=== PATIENT | male | born 1955 | race Caucasian/White ===

== ENCOUNTER 2017-02-23 10:30 | Inpatient (IN) ==
[2017-02-23] MEDS ORDERED: ENOXAPARIN 150 MG/ML INJECTION SQ ONE (10:49)
[2017-02-23] MEDS ORDERED: METHYLPREDNISOLONE SOD SUCC 125mg/2ml INJECTION IVP ONE (10:49)
--- NOTE | 2017-02-23 10:54 | Emergency Department Report ---
SOB HPI - General Chief Complaint: Shortness of Breath/Dyspnea Stated Complaint: soa Time Seen by Provider: 02/23/17 10:35 Source: patient, family Mode of arrival: ambulatory Limitations: no limitations - History of Present Illness 61yo man presents to the ER for evaluation of dyspnea. Pts sx started abruptly last night; pt has had associated diaphoresis, orthopnea, and anxiety. No known h/o lung dz or COPD. Has no h/o cardiac arrhythmia; takes no blood thinners. Complaint: shortness of breath Onset (ago): hour(s) (12) Severity: severe Consistency/Duration: constant Relieving factors: upright position Exacerbating factors: lying flat, exertion, movement Associated symptoms: orthopnea, palpitations, diaphoresis, nausea/vomiting Treatment prior to arrival: none - Related Data Home Medications Medication Instructions Recorded Confirmed Amlodipine Besylate 10 mg PO HS #0 04/30/08 02/23/17 Meloxicam 7.5 mg PO DAILY #0 04/30/08 02/23/17 Fenofibrate [Tricor] 145 mg PO DAILY #0 08/18/10 02/23/17 Metoprolol Succinate 100 mg PO DAILY #0 08/18/10 02/23/17 Losartan/Hydrochlorothiazide 1 each PO DAILY #0 12/26/12 02/23/17 [Losartan-Hctz 100-25 mg Tab] Sertraline HCl 100 mg PO DAILY #0 tab 02/03/15 02/23/17 [place] 10 mg-acetaminophen 325 mg 1 tab PO Q8H PRN 01/07/17 02/23/17 tablet Saw [place] Fruit [Saw [place]phalia] 450 mg PO DAILY 02/23/17 02/23/17 Allergies Allergy/AdvReac Type Severity Reaction Status Date / Time No Known Allergies Allergy Mild Verified 02/23/17 10:50 Review of Systems All systems: reviewed and negative except as stated Constitutional: Reports: other (Not feeling well.) Cardiovascular: Reports: as per HPI, dyspnea on exertion, orthopnea Respiratory: Reports: as per HPI, dyspnea [facility] Medical History (Last Reviewed 01/08/17 @ 09:02 by Efraín Rivas MD) COPD (chronic obstructive pulmonary disease) (Chronic Medical) Depression (Chronic Medical) HTN (hypertension) (Chronic Medical) High cholesterol (Chronic Medical) Osteoarthritis (Chronic Medical) Surgical History: Wade FAITH, hernia repair x3 Family History: Family History (Last Reviewed 01/08/17 @ 09:02 by Efraín Rivas MD) Father Diabetes HTN (hypertension) Mother Dementia Stroke - Social History Smoking status: Former smoker Physical Exam - Limitations Limitations: no limitations - General General appearance: alert, in no apparent distress, obese - Normal Exams: Head:: Normocephalic without trauma Eyes:: Pupils are PERRLA w/ EOMI, No scleral icterus, irritation, or foreign bodies noted ENMT:: No facial trauma, nasal exudates, pharyngeal erythema, or exudates are noted Neck:: Full range of motion, without adenopathy, JVD, bruits or thyromegaly Lymphatic:: No lymphadenopathy Musculoskeletal:: No tenderness, or deformity noted Integumentary:: No rashes, hives, or bruising noted Neurological:: Patient is alert, and oriented Psychiatric:: Patient exhibits, appropriate attention - Chest Chest inspection: Present: normal inspection, symmetric chest wall rise. Absent : tenderness, rash - Respiratory Respiratory exam: Absent: normal lung sounds bilaterally (Decreased air movement throughout), respiratory distress, wheezes, prolonged expiratory phase - Cardiovascular Cardiovascular exam: Present: tachycardia, irregular rhythm, normal heart sounds , +S1, +S2. Absent: regular rate, normal rhythm, systolic murmur, diastolic murmur, +S3, +S4 - Abdominal Exam Abdominal exam: Present: soft, normal bowel sounds. Absent: distention, tenderness, guarding, rebound, rigidity, psoas sign, obturator sign, heel tap sign, Keyes's sign, Rovsing's sign, tenderness at McBurney's Point, hernia Course - Consultations Consultation #1: Dr. Diaz ([facility]): Plan for admission to ensure rate control, anticoag, and likely cath on Saturday. Time: 12:48 Vital Signs Temperature 97.9 F 02/23/17 10:32 Pulse Rate 95 02/23/17 10:32 Respiratory Rate 22 02/23/17 10:32 Blood Pressure 152/101 H 02/23/17 10:32 Pulse Oximetry 95 02/23/17 10:32 Temperature 97.9 F 02/23/17 10:32 Pulse Rate 95 02/23/17 10:32 Respiratory Rate 12 02/23/17 11:35 Blood Pressure 152/101 H 02/23/17 10:32 Pulse Oximetry 95 02/23/17 11:35 Shortness of Breath/Dyspnea - [facility] Narrative Medical decision making narrative: Pt with new-onset CHF, new-onset A-fib, and associated dyspnea. 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 - Differential Diagnosis Likely: acute exacerbation of chronic obstructive airways disease, congestive heart failure, community acquired pneumonia, pulmonary embolism - Medical Records Attestation: I reviewed the patient's medical records. - Lab Data Attestation: I reviewed the patient's lab results. Result diagrams: 02/23/17 11:09 02/23/17 11:09 Lab Results 02/23/17 02/23/17 02/23/17 Range/Units 11:09 11:09 11:09 WBC 9.5 (4.5-11.0) T/MM3 RBC 5.37 (4.50-5.90) M/MM3 Hgb 14.6 (13.5-17.5) GM/DL Hct 45.2 (41-53) % MCV 84.2 (80-100) UM3 MCH 27.2 (26-34) UUG MCHC 32.3 (31-37) GM/DL RDW Std Deviation 46.7 (36.9-50.2) FL Plt Count 257 (130-400) T/MM3 MPV 10.1 (9.4-12.4) UM3 Immature Gran % (Auto) 0.4 (0.0-0.5) % Neut % (Auto) 71.4 H (33-66) % Lymph % (Auto) 18.4 L (23-45) % [place] % (Auto) 8.3 (0-9.0) % Eos % (Auto) 1.1 (0-4) % Baso % (Auto) 0.4 (0-2) % Neut # 6.8 (1.8-7.7) T/MM3 Lymph # 1.7 (1-4.8) T/MM3 [place] # 0.8 (0-0.8) T/MM3 Eos # 0.1 (0-0.5) T/MM3 Baso # 0.0 (0-0.2) T/MM3 Abs Immat Gran (auto) 0.04 H (0.00-0.03) T/MM3 D-Dimer < 150 (0-230) NG/ML Turbidity < 20 (0-20) Sodium 145 H (134-144) MEQ/L Potassium 3.6 (3.6-5) MEQ/L Chloride 103 (98-107) MEQ/L Carbon Dioxide 28 (22-30) MEQ/L Anion Gap 14 (5-15) MEQ/L BUN 20.0 (9-20) MG/DL Creatinine 0.7 L (0.8-1.5) MG/DL GFR Calculation 114 BUN/Creatinine Ratio 29 H (6-26) RATIO Glucose 121 H (75-110) MG/DL Calculated Osmolality 283 H (261-280) MOSM/KG Calcium 10.0 (8.4-10.2) MG/DL Total Bilirubin 0.60 (0.20-1.30) MG/DL Icterus Index < 2 (0-7) AST 38 (17-59) U/L ALT 51 (21-72) U/L Alkaline Phosphatase 56 (38-126) U/L Troponin I 0.018 (0-0.12) ng/ml B-Natriuretic Peptide 1940 H (0-175) pg/mL Total Protein 7.5 (6.3-8.2) G/DL Albumin 4.7 (3.5-5.0) G/DL Globulin 2.8 (2.4-3.6) G/DL Albumin/Globulin Ratio 1.7 (1.1-2.2) RATIO Plasma Lactate (0.6-2.2) MMOL/L Specimen Hemolysis < 15 (0-25) Ur Collection Type Urine Color (YELLOW) Urine Clarity Urine pH (5.0-8.0) Ur Specific [place] (1.015-1.025) Urine Protein (NEGATIVE) Urine Glucose (UA) (NEGATIVE) Urine Ketones (NEGATIVE) Urine Occult Blood (NEGATIVE) Urine Nitrate (NEGATIVE) Urine Bilirubin (NEGATIVE) Urine Urobilinogen (NORMAL) EU/DL Ur Leukocyte Esterase (NEGATIVE) Urinalysis Comment 02/23/17 02/23/17 Range/Units 11:15 12:01 WBC (4.5-11.0) T/MM3 RBC (4.50-5.90) M/MM3 Hgb (13.5-17.5) GM/DL Hct (41-53) % MCV (80-100) UM3 MCH (26-34) UUG MCHC (31-37) GM/DL RDW Std Deviation (36.9-50.2) FL Plt Count (130-400) T/MM3 MPV (9.4-12.4) UM3 Immature Gran % (Auto) (0.0-0.5) % Neut % (Auto) (33-66) % Lymph % (Auto) (23-45) % [place] % (Auto) (0-9.0) % Eos % (Auto) (0-4) % Baso % (Auto) (0-2) % Neut # (1.8-7.7) T/MM3 Lymph # (1-4.8) T/MM3 [place] # (0-0.8) T/MM3 Eos # (0-0.5) T/MM3 Baso # (0-0.2) T/MM3 Abs Immat Gran (auto) (0.00-0.03) T/MM3 D-Dimer (0-230) NG/ML Turbidity (0-20) Sodium (134-144) MEQ/L Potassium (3.6-5) MEQ/L Chloride (98-107) MEQ/L Carbon Dioxide (22-30) MEQ/L Anion Gap (5-15) MEQ/L BUN (9-20) MG/DL Creatinine (0.8-1.5) MG/DL GFR Calculation BUN/Creatinine Ratio (6-26) RATIO Glucose (75-110) MG/DL Calculated Osmolality (261-280) MOSM/KG Calcium (8.4-10.2) MG/DL Total Bilirubin (0.20-1.30) MG/DL Icterus Index (0-7) AST (17-59) U/L ALT (21-72) U/L Alkaline Phosphatase (38-126) U/L Troponin I (0-0.12) ng/ml B-Natriuretic Peptide (0-175) pg/mL Total Protein (6.3-8.2) G/DL Albumin (3.5-5.0) G/DL Globulin (2.4-3.6) G/DL Albumin/Globulin Ratio (1.1-2.2) RATIO Plasma Lactate 1.9 (0.6-2.2) MMOL/L Specimen Hemolysis (0-25) Ur Collection Type Urine, clean catch Urine Color Yellow (YELLOW) Urine Clarity Clear Urine pH 6.5 (5.0-8.0) Ur Specific [place] 1.015 (1.015-1.025) Urine Protein Trace A (NEGATIVE) Urine Glucose (UA) Negative (NEGATIVE) Urine Ketones Negative (NEGATIVE) Urine Occult Blood Trace-intact (NEGATIVE) Urine Nitrate Negative (NEGATIVE) Urine Bilirubin Negative (NEGATIVE) Urine Urobilinogen 0.2 (NORMAL) EU/DL Ur Leukocyte Esterase Negative (NEGATIVE) Urinalysis Comment Microscopic not ind. - Radiology Data Attestation: I reviewed the patient's radiology results. CXR: BLL haziness; sharp costophrenic angles. Concern for atelectasis vs viral illness. - EKG Data EKG #1 EKG attestation: Yes: I reviewed and interpreted this EKG. EKG shows normal: intervals, QRS complexes, ST-T waves Rate: tachycardia Rhythm: A.Fib [place]/QRS: right axis deviation Disposition Clinical Impression: CHF (congestive heart failure) Qualifiers: Congestive heart failure type: unspecified congestive heart failure type Congestive heart failure chronicity: acute Qualified Code(s): I50.9 - Heart failure, unspecified A-fib Qualifiers: Atrial fibrillation type: unspecified Qualified Code(s): I48.91 - Unspecified atrial fibrillation Prescriptions: No Action Fenofibrate [Tricor] 145 mg PO DAILY #0 Metoprolol Succinate 100 mg PO DAILY #0 Meloxicam 7.5 mg PO DAILY #0 Amlodipine Besylate 10 mg PO HS #0 Losartan/Hydrochlorothiazide [Losartan-Hctz 100-25 mg Tab] 1 each PO DAILY #0 Sertraline HCl 100 mg PO DAILY #0 tab Saw [place] Fruit [Saw [place]] 450 mg PO DAILY [place] 10 mg-acetaminophen 325 mg tablet 1 tab PO Q8H PRN PRN Reason: Pain Referrals: Diego Miller MD [Family Provider] - Time of Disposition: 12:58 - Seen By: physician
[2017-02-23] MEDS: ALBUTEROL 2.5mg/3ml (0.083%) NEB IH SCH ×3 (10:58→11:35)
--- OUTSIDE RECORDS SUMMARY | 2017-02-23 11:03 | External Medical Summary | Referral Summary ---
:1955 Author Organization [facility], [place] [place] [address] Care Team Providers Name Role Phone Diego Miller Primary Care Physician Encounter VC Date(s): 11/22/14 - 11/22/14 [facility] [address] [place] [phone] [place] Discharge Diagnosis: LATERAL EPICONDYLITIS Discharge Diagnosis: Medial epicondylitis Discharge Disposition: 01-Home or Self Care Attending Physician: Diego Miller MD Admitting Physician: Diego Miller MD Vital Signs Most recent to oldest [Reference Range]: 1 Temperature Tympanic [36.6-38.1 degC] 36.0 degC *LOW* (11/22/14 11:18 AM) Peripheral Pulse Rate [60-100 bpm] 60 bpm (11/22/14 11:18 AM) Respiratory Rate [14-20 br/min] 16 br/min (11/22/14 11:18 AM) Blood Pressure [90-140/60-90 mmHg] 126/80 mmHg (11/22/14 11:18 AM) Problem List Condition Effective Dates Status Health Status Informant Allergy(Confirmed) Active Benign essential hypertension Active (disorder)(Confirmed) Bronchitis(Confirmed) Active Chicken pox(Confirmed) Active Left wrist cyst(Confirmed) Active Depression(Confirmed) Active Drug abuse(Confirmed) Active Ear infection(Confirmed) Active Foot ulcer Left(Confirmed) Active Gout (disorder)(Confirmed) Active Hep C(Confirmed) Active Hypertension(Confirmed) Active Lung nodules(Confirmed)1 Active Hyperlipidemia(Confirmed) Active Morbid obesity(Confirmed) Active patient Osteoarthritis(Confirmed) Active Overactive bladder(Confirmed) Active Pneumonia(Confirmed) Active Pure hypercholesterolemia Active (disorder)(Confirmed) Ulcer(Confirmed) Active 1Ct scan 12-. Plan khai in 6 months Allergies, Adverse Reactions, Alerts No Known Medication Allergies Medications amLODIPine 10 mg oral tablet See Instructions, TAKE ONE TABLET BY MOUTH ONCE DAILY, # 30 tabs, 4 Refill(s), eRx: [facility] 2428, TAKE ONE TABLET BY MOUTH ONCE DAILY Start Date: 01/25/15 Status: Orderedfenofibrate 145 mg oral tablet See Instructions, TAKE ONE TABLET BY MOUTH ONCE DAILY, # 30 tabs, 5 Refill(s), eRx: [facility] 2428, TAKE ONE TABLET BY MOUTH ONCE DAILY Start Date: 01/11/15 Status: Orderedlosartan-hydrochlorothiazide 100 mg-25 mg oral tablet See Instructions, TAKE ONE TABLET BY MOUTH ONCE DAILY, # 30 tabs, 2 Refill(s), eRx: [facility] 2428, TAKE ONE TABLET BY MOUTH ONCE DAILY Start Date: 04/25/15 Status: Orderedmeloxicam 7.5 mg oral tablet See Instructions, TAKE ONE TABLET BY MOUTH TWICE DAILY, # 60 tabs, 3 Refill(s), eRx: [facility] 2428, TAKE ONE TABLET BY MOUTH TWICE DAILY Start Date: 05/11/15 Status: OrderedMetoprolol Tartrate 100 mg oral tablet See Instructions, TAKE ONE TABLET BY MOUTH ONCE DAILY, # 30 tabs, 5 Refill(s), eRx: [facility] 2428, TAKE ONE TABLET BY MOUTH ONCE DAILY Start Date: 01/11/15 Status: OrderedNorco 10 mg-325 mg oral tablet 1-2 tabs, Oral, q6hr, as needed for pain, 2 weeks, # 60 tabs, 0 Refill(s) Start Date: 05/27/15 Status: OrderedpredniSONE 10 mg oral tablet See Instructions, Take 5 tabs for 2 days, then 4 for 2 days, then 3 for 2 days then 2 for 2 days, then 1 for 2 days, # 30 Each, 0 Refill(s), Pharmacy: [facility] 2428, Take 5 tabs for 2 days, then 4 for 2 days, then 3 for 2 days then 2 for 2 da... Start Date: 03/04/15 Status: Orderedsertraline 100 mg oral tablet See Instructions, TAKE ONE TABLET BY MOUTH EVERY DAY, # 30 tabs, 4 Refill(s), eRx: [facility], TAKE ONE TABLET BY MOUTH EVERY DAY Start Date: 01/25/15 Status: Ordered Results No data available for this section Immunizations Vaccine Date Refusal Reason tetanus/diphth/pertuss (Tdap) adult/adol 03/19/14 influenza virus vaccine, inactivated 03/14/15 influenza virus vaccine, inactivated 03/07/15 influenza virus vaccine, inactivated 03/12/14 influenza virus vaccine, inactivated 03/12/14 Procedures Procedure Date Related Diagnosis Body Site BRVO1 04/19/15 Colonoscopy2 02/03/15 Arthrocentesis, aspiration and/or injection, 11/22/14 intermediate joint or bursa (eg, temporomandibular, acromioclavicular, wrist, elbow or ankle, olecranon bursa); without ultrasound guidance Hip replacement-Right3 12/29/12 Hip replacement-Left 08/21/10 Cyst left wrist Hernia repair X3 Tonsillectomy Ulcer left foot 1Dr. Mariluz Jay with [facility] [id number] polyp, sister positive for colon cancer, repeat in 5 [id number] Social History Social History Type Response Smoking Status Former smoker Assessment and Plan Extracted from: Title: Ambulatory Patient Education Author: Diego Miller MD Date: Family Medicine Medial Epicondylitis (Golfer's Elbow) with Rehab Medial epicondylitis involves inflammation and pain around the inner (medial ) portion of the elbow. This pain is caused by inflammation of the tendons in the forearm that flex (bring down ) the wrist. Medial epicondylitis is also called golfer's elbow, because it is common among golfers. However, it may occur in any individual who flexes the wrist regularly. If medial epicondylitis is left untreated, it may become a chronic problem. SYMPTOMS Pain, tenderness, or inflammation over the inner (medial ) side of the elbow. Pain or weakness with gripping activities. Pain that increases with wrist twisting motions (using a screwdriver, playing golf, bowling). CAUSES Medial epicondylitis is caused by inflammation of the tendons that flex the wrist. Causes of injury may include: Chronic, repetitive stress and strain to the tendons that run from the wrist and forearm to the elbow. Sudden strain on the forearm, including wrist snap when serving balls with racquet sports, or throwing a baseball. RISK INCREASES WITH: Sports or occupations that require repetitive and/or strenuous forearm and wrist movements (pitching a baseball, golfing, carpentry). Poor wrist and forearm strength and flexibility. Failure to warm up properly before activity. Resuming activity before healing, rehabilitation, and conditioning are complete. PREVENTION Warm up and stretch properly before activity. Maintain physical fitness: Strength, flexibility, and endurance. Cardiovascular fitness. Wear and use properly fitted equipment. Learn and use proper technique and have a middle school football coach correct improper technique. Wear a tennis elbow (counterforce ) brace. PROGNOSIS The course of this condition depends on the degree of the injury. If treated properly, acute cases (symptoms lasting less than 4 weeks) are often resolved in 2 to 6 weeks. Chronic (longer lasting cases) often resolve in 3 to 6 months, but may require physical therapy. RELATED COMPLICATIONS Frequently recurring symptoms, resulting in a chronic problem. Properly treating the problem the first time decreases frequency of recurrence. Chronic inflammation, scarring, and partial tendon tear, requiring surgery. Delayed healing or resolution of symptoms. TREATMENT Treatment first involves the use of ice and medicine, to reduce pain and inflammation. Strengthening and stretching exercises may reduce discomfort, if performed regularly. These exercises may be perfor med at home, if the condition is an acute injury. Chronic cases may require a referral to a physical therapist for evaluation and treatment. Your caregiver may advise a corticosteroid injection to help reduce inflammation. Rarely, surgery is needed. MEDICATION If pain medicine is needed, nonsteroidal anti-inflammatory medicines ( aspirin and ibuprofen), or other minor pain relievers (acetaminophen), are often advised. Do not take pain medicine for 7 days before surgery. Prescription pain relievers may be given, if your caregiver thinks they are needed. Use only as directed and only as much as you need. Corticosteroid injections may be recommended. These injections should be reserved only for the most severe cases, because they can only be given a certain number of times. HEAT AND COLD Cold treatment (icing ) should be applied for 10 to 15 minutes every 2 to 3 hours for inflammation and pain, and immediately after activity that aggravates your symptoms. Use ice packs or an ice massage. Heat treatment may be used before performing stretching and strengthening activities prescribed by your caregiver, physical therapist, or market development trainer. Use a heat pack or a warm water soak. SEEK MEDICAL CARE IF: Symptoms get worse or do not improve in 2 weeks, despite treatment. EXERCISES RANGE OF MOTION (ROM) AND STRETCHING EXERCISES - Epicondylitis, Medial (Golfer' s Elbow) These exercises may help you when beginning to rehabilitate your injury. Your symptoms may go away with or without further involvement from your physician, physical therapist or market development trainer. While completing these exercises, remember: Restoring tissue flexibility helps normal motion to return to the joints. This allows healthier, less painful movement and activity. An effective stretch should be held for at least 30 seconds. A stretch should never be painful. You should only feel a gentle lengthening or release in the stretched tissue. RANGE OF MOTION Wrist Flexion, Active-Assisted Extend your right / left elbow with your fingers pointing down.* Gently pull the back of your hand towards you, until you feel a gentle stretch on the top of your forearm. Hold this position for seconds. Repeat times. Complete this exercise times per day. *If directed by your physician, physical therapist or market development trainer, complete this stretch with your elbow bent, rather than extended. RANGE OF MOTION Wrist Extension, Active-Assisted Extend your right / left elbow and turn your palm upwards.* Gently pull your palm and fingertips back, so your wrist extends and your fingers point more toward the ground. You should feel a gentle stretch on the inside of your forearm. Hold this position for seconds. Repeat times. Complete this exercise times per day. *If directed by your physician, physical therapist or market development trainer, complete this stretch with your elbow bent, rather than extended. STRETCH Wrist Extension Place your right / left fingertips on a tabletop leaving your elbow slightly bent. Your fingers should point backwards. Gently press your fingers and palm down onto the table, by straightening your elbow. You should feel a stretch on the inside of your forearm. Hold this position for seconds. Repeat times. Complete this stretch times per day. STRENGTHENING EXERCISES - Epicondylitis, Medial (Golfer's Elbow) These exercises may help you when beginning to rehabilitate your injury. They may resolve your symptoms with or without further involvement from your physician, physical therapist or market development trainer. While completing these exercises, remember: Muscles can gain both the endurance and the strength needed for everyday activities through controlled exercises. Complete these exercises as instructed by your physician, physical therapist or market development trainer. Increase the resistance and repetitions only as guided. You may experience muscle soreness or fatigue, but the pain or discomfort you are trying to eliminate should never worsen during these exercises. If this pain does get worse, stop and make sure you are following the directions exactly. If the pain is still present after adjustments, discontinue the exercise until you can discuss the trouble with your caregiver. STRENGTH Wrist Flexors Sit with your right / left forearm palm-up, and fully supported on a table or countertop. Your elbow should be resting below the height of your shoulder. Allow your wrist to extend over the edge of the surface. Loosely holding a weight, or a piece of rubber exercise band or tubing, slowly curl your hand up toward your forearm. Hold this position for seconds. Slowly lower the wrist back to the starting position in a controlled manner. Repeat times. Complete this exercise times per day. STRENGTH Wrist Extensors Sit with your right / left forearm palm-down and fully supported. Your elbow should be resting below the height of your shoulder. Allow your wrist to extend over the edge of the surface. Loosely holding a weight, or a piece of rubber exercise band or tubing, slowly curl your hand up toward your forearm. Hold this position for seconds. Slowly lower the wrist back to the starting position in a controlled manner. Repeat times. Complete this exercise times per day. STRENGTH - Ulnar Deviators Stand with a weight in your right / left hand, or sit while holding a rubber exercise band or tubing, with your healthy arm supported on a table or countertop. Move your wrist so that your pinkie travels toward your forearm and your thumb moves away from your forearm. Hold this position for seconds and then slowly lower the wrist back to the starting position. Repeat times. Complete this exercise times per day STRENGTH - Early Childhood Director Grasp a tennis ball, a dense sponge, or a large, rolled sock in your hand. Squeeze as hard as you can, without increasing any pain. Hold this position for seconds. Release your sheet turner slowly. Repeat times. Complete this exercise times per day. STRENGTH Forearm Supinators Sit with your right / left forearm supported on a table, keeping your elbow below shoulder height. Rest your hand over the edge, palm down. Gently sheet turner a hammer or a soup ladle. Without moving your elbow, slowly turn your palm and hand upward to a "thumbs-up" position. Hold this position for seconds. Slowly return to the starting position. Repeat times. Complete this exercise times per day. STRENGTH Forearm Pronators Sit with your right / left forearm supported on a table, keeping your elbow below shoulder height. Rest your hand over the edge, palm up. Gently sheet turner a hammer or a soup ladle. Without moving your elbow, slowly turn your palm and hand upward to a "thumbs-up" position. Hold this position for seconds. Slowly return to the starting position. Repeat times. Complete this exercise times per day. Document Released: 06/03/2006 Document Revised: 08/25/2012 Document Reviewed: 09/15/2009 ExitCare Patient Information 2013 [employer] [facility]. No follow up information was provided. Extracted from: Title: Office Visit Note Author: Diego Miller MD Date: 11/22/14 Assessment/Plan Medial epicondylitis I recommended injecting the medial epicondyle knees agreeable with that. Under sterile technique I injected 1 mL of lidocaine and 1 mL of triamcinolone into the medial epicond yle area of the left elbow. Sterile dressing was applied he tolerated this well. The elbow continues to be problematic let us know. Follow-up for other chronic health problems as recommended. Orders: HYDROcodone-acetaminophen, 1-2 tabs, Oral, q6hr, as needed for pain, 2 weeks, # 60 tabs, 0 Refill(s)
--- OUTSIDE RECORDS SUMMARY | 2017-02-23 11:03 | External Medical Summary | Referral Summary ---
:1955 Author Organization [facility] [place] Address [address] [place] [address] [place] [address] Care Team Providers Name Role Phone Paul Diego Gottlieb Primary Care Physician Encounter VC Date(s): 02/03/15 - 02/03/15 [facility] [place] [address] [place] [address] [place] [phone] [place] Discharge Disposition: 01-Home or Self Care Attending Physician: Juan Manuel Reed MD Admitting Physician: [place] Manuel Reed MD Vital Signs No data available for this section Problem List Condition Effective Dates Status Health Status Informant Allergy(Confirmed) Active Benign essential hypertension Active (disorder)(Confirmed) Bronchitis(Confirmed) Active Chicken pox(Confirmed) Active Left wrist cyst(Confirmed) Active Osteoarthritis(Confirmed) Active Oral lesion(Confirmed) Active Drug abuse(Confirmed) Active Ear infection(Confirmed) Active Foot ulcer Left(Confirmed) Active Gout (disorder)(Confirmed) Active Hep C(Confirmed) Active Hypertension(Confirmed) Active Lung nodules(Confirmed)1 Active Hyperlipidemia(Confirmed) Active Morbid obesity(Confirmed) Active patient Overactive bladder(Confirmed) Active Pneumonia(Confirmed) Active Pure hypercholesterolemia Active (disorder)(Confirmed) Depression(Confirmed) Active Ulcer(Confirmed) Active 1Ct scan -. Plan khai in 6 months Allergies, Adverse Reactions, Alerts No Known Medication Allergies Medications amLODIPine 10 mg oral tablet See Instructions, TAKE ONE TABLET BY MOUTH ONCE DAILY, # 30 tabs, 5 Refill(s), eRx: [facility], TAKE ONE TABLET BY MOUTH ONCE DAILY Start Date: 06/27/15 Status: Orderedfenofibrate 145 mg oral tablet See Instructions, TAKE ONE TABLET BY MOUTH ONCE DAILY, # 30 tabs, 4 Refill(s), eRx: [facility]28, TAKE ONE TABLET BY MOUTH ONCE DAILY Start Date: 07/08/15 Status: OrderedKeflex 500 mg oral capsule 500 mg 1 caps, Oral, q8hr, # 30 caps, 0 Refill(s), Pharmacy: [facility] 2428, 1 caps Oral q8hr Start Date: 08/04/15 Status: Orderedlosartan-hydrochlorothiazide 100 mg-25 mg oral tablet See Instructions, TAKE ONE TABLET BY MOUTH ONCE DAILY, # 30 tabs, 5 Refill(s), eRx: [facility] 2428, TAKE ONE TABLET BY MOUTH ONCE DAILY Start Date: 07/21/15 Status: Orderedmeloxicam 7.5 mg oral tablet See Instructions, TAKE ONE TABLET BY MOUTH TWICE DAILY, # 60 tabs, 3 Refill(s), eRx: [facility] 2428, TAKE ONE TABLET BY MOUTH TWICE DAILY Start Date: 05/11/15 Status: OrderedMetoprolol Tartrate 100 mg oral tablet See Instructions, TAKE ONE TABLET BY MOUTH ONCE DAILY, # 30 tabs, 4 Refill(s), eRx: [facility] 2428, TAKE ONE TABLET BY MOUTH ONCE DAILY Start Date: 07/08/15 Status: OrderedNorco 10 mg-325 mg oral tablet 1-2 tabs, Oral, q6hr, as needed for pain, 2 weeks, # 60 tabs, 0 Refill(s) Start Date: 08/10/15 Status: Orderedsertraline 100 mg oral tablet See Instructions, TAKE ONE TABLET BY MOUTH ONCE DAILY, # 30 tabs, 5 Refill(s), eRx: [facility] 2428, TAKE ONE TABLET BY MOUTH ONCE DAILY Start Date: 06/24/15 Status: Ordered Results No data available for this section Immunizations Vaccine Date Refusal Reason tetanus/diphth/pertuss (Tdap) adult/adol 03/19/14 influenza virus vaccine, inactivated 03/14/15 influenza virus vaccine, inactivated 03/07/15 influenza virus vaccine, inactivated 03/12/14 influenza virus vaccine, inactivated 03/12/14 Procedures Procedure Date Related Diagnosis Body Site BRVO1 04/19/15 Colonoscopy2 02/03/15 Colonoscopy, flexible; with biopsy, single or 02/03/15 multiple Hip replacement-Right3 12/29/12 Hip replacement-Left 08/21/10 Cyst left wrist Hernia repair X3 Tonsillectomy Ulcer left foot [facility] [id number] polyp, sister positive for colon cancer, repeat in 5 [id number] Social History Social History Type Response Smoking Status Former smoker Assessment and Plan No data available for this section
--- OUTSIDE RECORDS SUMMARY | 2017-02-23 11:03 | External Medical Summary | Referral Summary ---
:1955 Author Organization [facility] [place] [place] [address] Care Team Providers Name Role Phone Diego Miller Primary Care Physician Encounter VC Date(s): 04/05/16 - 04/05/16 [facility] [place] [place] [phone] [place] Discharge Diagnosis: Polyosteoarthritis Discharge Diagnosis: Mixed hyperlipidemia Discharge Diagnosis: Benign essential hypertension Discharge Diagnosis: Depression Discharge Diagnosis: Left lateral epicondylitis Discharge Disposition: 01-Home or Self Care Attending Physician: Diego Miller MD Admitting Physician: Diego Miller MD Vital Signs Most recent to oldest [Reference Range]: 1 Temperature Tympanic [36.6-38.1 degC] 36.5 degC *LOW* (04/05/16 7:59 AM) Peripheral Pulse Rate [60-100 bpm] 67 bpm (04/05/16 7:59 AM) Respiratory Rate [14-20 br/min] 20 br/min (04/05/16 7:59 AM) Blood Pressure [90-140/60-90 mmHg] 136/72 mmHg (04/05/16 7:59 AM) SpO2 92 % (04/05/16 7:59 AM) Problem List Condition Effective Dates Status [...] DAILY, # 30 tabs, 5 Refill(s), eRx: [facility] 2428, TAKE ONE TABLET BY MOUTH ONCE DAILY Start Date: 12/26/15 Status: Orderedfenofibrate 145 mg oral tablet See Instructions, TAKE ONE TABLET BY MOUTH ONCE DAILY, # 30 tabs, 3 Refill(s), eRx: [facility] 2428, TAKE ONE TABLET BY MOUTH ONCE DAILY Start Date: 01/06/16 Status: Orderedlosartan-hydrochlorothiazide 100 mg-25 mg oral tablet See Instructions, TAKE ONE TABLET BY MOUTH ONCE DAILY, # 30 tabs, 5 Refill(s), eRx: [facility] 2428, TAKE ONE TABLET BY MOUTH ONCE DAILY Start Date: 01/19/16 Status: Orderedmeloxicam 7.5 mg oral tablet See Instructions, TAKE ONE TABLET BY MOUTH TWICE DAILY, # 60 tabs, 3 Refill(s), eRx: [facility] 2428, TAKE ONE TABLET BY MOUTH TWICE DAILY Start Date: 01/06/16 Status: OrderedMetoprolol Tartrate 100 mg oral tablet See Instructions, TAKE ONE TABLET BY MOUTH ONCE DAILY, # 30 tabs, 3 Refill(s), eRx: [facility] 2428, TAKE ONE TABLET BY MOUTH ONCE DAILY Start Date: 01/06/16 Status: OrderedNorco 10 mg-325 mg oral tablet 1-2 tabs, Oral, q6hr, as needed for pain, 2 weeks, # 60 tabs, 0 Refill(s) Start Date: 03/28/16 Status: Orderedsertraline 100 mg oral tablet See Instructions, TAKE ONE TABLET BY MOUTH ONCE DAILY, # 30 tabs, 5 Refill(s), eRx: [facility] 2428, TAKE ONE TABLET BY MOUTH ONCE DAILY Start Date: 03/19/16 Status: Ordered Results No data available for this section Immunizations Vaccine Date Refusal Reason tetanus/diphth/pertuss (Tdap) adult/adol 03/19/14 influenza virus vaccine, inactivated 04/02/16 influenza virus vaccine, inactivated 03/14/15 influenza virus vaccine, inactivated 03/07/15 influenza virus vaccine, inactivated 03/12/14 influenza virus vaccine, inactivated 03/12/14 pneumococcal 23-polyvalent vaccine 04/05/16 Procedures Procedure Date Related Diagnosis Body Site Arthrocentesis, aspiration and/or injection, 04/05/16 intermediate joint or bursa (eg, temporomandibular, acromioclavicular, wrist, elbow or ankle, olecranon bursa); without ultrasound guidance BRVO1 04/19/15 Colonoscopy2 02/03/15 Hip replacement-Right3 12/29/12 Hip replacement-Left 08/21/10 Cyst left wrist Hernia repair X3 Tonsillectomy Ulcer left foot 1DrMelvin Jay with [facility] [id number] polyp, sister positive for colon cancer, repeat in 5 [id number] Social History Social History Type Response Smoking Status Former smoker Assessment and Plan Extracted from: Title: Office Visit Note Author: Diego Miller MD Date: 04/05/16 Assessment/Plan 1.Benign essential hypertension Blood pressures adequately controlled. Medications and treatments reviewed no changes are recommended. Laboratory studies from earlier this summer were reviewed . Report card reviewed and provided. Pneumococcal vaccine recommended. He 's received a flu shot already. Follow-up in 3 months. Ordered: Office Visit Level 4 Est 44501 2.Depression Chronic relatively stable no change in current treatment. Ordered: Office Visit Level 4 Est 54778 3.Polyosteoarthritis Continue current treatment. Encouraged to stay active. Ordered: Office Visit Level 4 Est 30602 4.Mixed hyperlipidemia Laboratory studies from December reviewed no changes in current treatment recommended at this time. Ordered: Office Visit Level 4 Est [id number] 5.Left lateral epicondylitis After obtaining verbal consentand under sterile techniquethe left lateral epicondyle was injected with 1 mL of lidocaine 1 mL of Kenalogwithout difficulty today. Sterile dressing was applied. If symptoms don't improve he'll let us know. Ordered: Office Visit Level 4 Est 64204
--- OUTSIDE RECORDS SUMMARY | 2017-02-23 11:03 | External Medical Summary | Referral Summary ---
:1955 Author Organization [facility], [address] [place] [address] Care Team Providers Name Role Phone Diego Miller Primary Care Physician Encounter VC Date(s): 03/21/15 - 03/21/15 [facility] [address] [place] [address] Discharge Diagnosis: Tongue ulcer Discharge Diagnosis: Osteoarthritis of right knee Discharge Disposition: 01-Home or Self Care Attending Physician: Diego Miller MD Admitting Physician: Diego Miller MD Vital Signs Most recent to oldest [Reference Range]: 1 Temperature Tympanic [36.6-38.1 degC] 36.5 degC *LOW* (03/21/15 2:02 PM) Peripheral Pulse Rate [60-100 bpm] 76 bpm (03/21/15 2:02 PM) Respiratory Rate [14-20 br/min] 16 br/min (03/21/15 2:02 PM) Blood Pressure [90-140/60-90 mmHg] 140/84 mmHg (03/21/15 2:02 PM) Problem List Condition Effective Dates Status Health [...] (disorder)(Confirmed) Depression(Confirmed) Active Ulcer(Confirmed) Active 1Ct scan 12-. Plan khai in 6 months Allergies, Adverse Reactions, Alerts No Known Medication Allergies Medications amLODIPine 10 mg oral tablet See Instructions, TAKE ONE TABLET BY MOUTH ONCE DAILY, # 30 tabs, 5 Refill(s), eRx: [place] [id number], TAKE ONE TABLET BY MOUTH ONCE DAILY Start Date: 06/27/15 Status: Orderedfenofibrate 145 mg oral tablet See Instructions, TAKE ONE TABLET BY MOUTH ONCE DAILY, # 30 tabs, 4 Refill(s), eRx: [place] [id number], TAKE ONE TABLET BY MOUTH ONCE DAILY Start Date: 07/08/15 Status: OrderedKeflex 500 mg oral capsule 500 mg 1 caps, Oral, q8hr, # 30 caps, 0 Refill(s), Pharmacy: [place] [facility] [id number], 1 caps Oral q8hr Start Date: 08/04/15 Status: Orderedlosartan-hydrochlorothiazide 100 mg-25 mg oral tablet See Instructions, TAKE ONE TABLET BY MOUTH ONCE DAILY, # 30 tabs, 5 Refill(s), eRx: [place] [id number], TAKE ONE TABLET BY MOUTH ONCE DAILY Start Date: 07/21/15 Status: Orderedmeloxicam 7.5 mg oral tablet See Instructions, TAKE ONE TABLET BY MOUTH TWICE DAILY, # 60 tabs, eRx: [place] [id number], TAKEONE TABLET BY MOUTH TWICE DAILY Start Date: 09/05/15 Status: OrderedMetoprolol Tartrate 100 mg oral tablet See Instructions, TAKE ONE TABLET BY MOUTH ONCE DAILY, # 30 tabs, 4 Refill(s), eRx: [place] [id number], TAKE ONE TABLET BY MOUTH ONCE DAILY Start Date: 07/08/15 Status: OrderedNorco 10 mg-325 mg oral tablet 1-2 tabs, Oral, q6hr, as needed for pain, 2 weeks, # 60 tabs, 0 Refill(s) Start Date: 09/21/15 Status: Orderedsertraline 100 mg oral tablet See Instructions, TAKE ONE TABLET BY MOUTH ONCE DAILY, # 30 tabs, 5 Refill(s), eRx: [place] [id number], TAKE ONE TABLET BY MOUTH ONCE DAILY Start Date: 06/24/15 Status: Ordered Results No data available for this section Immunizations Vaccine Date Refusal Reason tetanus/diphth/pertuss (Tdap) adult/adol 03/19/14 influenza virus vaccine, inactivated 9/28/15 influenza virus vaccine, inactivated 03/07/15 influenza virus vaccine, inactivated 03/12/14 influenza virus vaccine, inactivated 03/12/14 Procedures Procedure Date Related Diagnosis Body Site BRVO1 04/19/15 Arthrocentesis, aspiration and/or injection, 03/21/15 major joint or bursa (eg, shoulder, hip, knee, subacromial bursa); without ultrasound guidance Colonoscopy2 02/03/15 Hip replacement-Right3 12/29/12 Hip replacement-Left 08/21/10 Cyst left wrist Hernia repair X3 Tonsillectomy Ulcer left foot 1DrMelvin Jay with [facility] Wcenotakskb4Ufexfdhsyrgt polyp, sister positive for colon cancer, repeat in 5 [id number] Social History Social History Type Response Smoking Status Former smoker Assessment and Plan Extracted from: Title: Office Visit Note Author: Diego Miller MD Date: 03/21/15 Assessment/Plan Osteoarthritis of right knee With the patient's consent permission I injected the right knee with 2 mL of Kenalog 1 mL of lidocaine under sterile condition with no touch technique. Repeated this i n the prepatellar medial aspect. Tolerated well if not improving he'll let me know. Tongue ulcer With the ongoing nature of this ulceration I've recommended surgical consultation for possible biopsy.
--- OUTSIDE RECORDS SUMMARY | 2017-02-23 11:03 | External Medical Summary | Referral Summary ---
:1955 Author Organization [facility], [place] [place] [address] Care Team Providers Name Role Phone Diego Miller Primary Care Physician Encounter VC Date(s): 08/04/15 - 08/04/15 [facility] [place] [place] [address] [place] Discharge Diagnosis: Folliculitis Discharge Disposition: 01-Home or Self Care Attending Physician: Diego Miller MD Admitting Physician: Diego Miller MD Vital Signs Most recent to oldest [Reference Range]: 1 Temperature Tympanic [36.6-38.1 degC] 36.5 degC *LOW* (08/04/15 10:13 AM) Peripheral Pulse Rate [60-100 bpm] 60 bpm (08/04/15 10:13 AM) Respiratory Rate [14-20 br/min] 16 br/min (08/04/15 10:13 AM) Blood Pressure [90-140/60-90 mmHg] 152/104 mmHg *HI* (08/04/15 10:13 AM) Problem List Condition Effective Dates Status [...] DAILY, # 30 tabs, 5 Refill(s), eRx: [place] [id number], TAKE ONE TABLET BY MOUTH ONCE DAILY Start Date: 06/27/15 Status: Orderedfenofibrate 145 mg oral tablet See Instructions, TAKE ONE TABLET BY MOUTH ONCE DAILY, # 30 tabs, 4 Refill(s), eRx: [place] [id number], TAKE ONE TABLET BY MOUTH ONCE DAILY Start Date: 07/08/15 Status: OrderedKeflex 500 mg oral capsule 500 mg 1 caps, Oral, q8hr, # 30 caps, 0 Refill(s), Pharmacy: [place] [address], 1 caps Oral q8hr Start Date: 08/04/15 Status: Orderedlosartan-hydrochlorothiazide 100 mg-25 mg oral tablet See Instructions, TAKE ONE TABLET BY MOUTH ONCE DAILY, # 30 tabs, 5 Refill(s), eRx: [place] [id number], TAKE ONE TABLET BY MOUTH ONCE DAILY Start Date: 07/21/15 Status: Orderedmeloxicam 7.5 mg oral tablet See Instructions, TAKE ONE TABLET BY MOUTH TWICE DAILY, # 60 tabs, 3 Refill(s), eRx: [place] [id number], TAKE ONE TABLET BY MOUTH TWICE DAILY Start Date: 05/11/15 Status: OrderedMetoprolol Tartrate 100 mg oral tablet See Instructions, TAKE ONE TABLET BY MOUTH ONCE DAILY, # 30 tabs, 4 Refill(s), eRx: [place] [id number], TAKE ONE TABLET BY MOUTH ONCE DAILY Start Date: 07/08/15 Status: OrderedNorco 10 mg-325 mg oral tablet 1-2 tabs, Oral, q6hr, as needed for pain, 2 weeks, # 60 tabs, 0 Refill(s) Start Date: 07/21/15 Status: Orderedsertraline 100 mg oral tablet See Instructions, TAKE ONE TABLET BY MOUTH ONCE DAILY, # 30 tabs, 5 Refill(s), eRx: [place] [id number], TAKE ONE TABLET BY MOUTH ONCE DAILY Start Date: 06/24/15 Status: Ordered Results No data available for this section Immunizations Vaccine Date Refusal Reason tetanus/diphth/pertuss (Tdap) adult/adol 03/19/14 influenza virus vaccine, inactivated 03/14/15 influenza virus vaccine, inactivated 03/07/15 influenza virus vaccine, inactivated 03/12/14 influenza virus vaccine, inactivated 03/12/14 Procedures Procedure Date Related Diagnosis Body Site BRVO1 04/19/15 Colonoscopy2 02/03/15 Hip replacement-Right3 12/29/12 Hip replacement-Left 08/21/10 Cyst left wrist Hernia repair X3 Tonsillectomy Ulcer left foot 1DrMelvin Jay with [facility] Hcszzdybass3Ocmowwxyoozw polyp, sister positive for colon cancer, repeat in 5 [id number] Social History Social History Type Response Smoking Status Former smoker Assessment and Plan Extracted from: Title: Office Visit Note Author: Diego Miller MD Date: 08/04/15 Assessment/Plan Folliculitis Recommended some Keflex 500 mg 3 times a day for 10 days. Keep the area clean and dry. If symptomsdo not resolve or further problems develop follow-up. Ordered: Office Visit Level 3 Est 12967 Orders: cephalexin, 500 mg 1 caps, Oral, q8hr, # 30 caps, 0 Refill(s), Pharmacy: [id number], 1 caps Oral q8hr
--- OUTSIDE RECORDS SUMMARY | 2017-02-23 11:03 | External Medical Summary | Referral Summary ---
:1955 Author Organization [facility] [place] [place] [address] Care Team Providers Name Role Phone Diego Miller Primary Care Physician Encounter VC Date(s): 12/28/14 - 12/28/14 [facility] [place] [place] [address] [place] Discharge Diagnosis: Osteoarthritis of left elbow Discharge Diagnosis: Gout Discharge Diagnosis: LATERAL EPICONDYLITIS Discharge Diagnosis: Knee osteoarthritis Discharge Diagnosis: Hyperlipidemia Discharge Diagnosis: Osteoarthritis Discharge Diagnosis: Benign essential hypertension Discharge Disposition: 01-Home or Self Care Attending Physician: Diego Miller MD Admitting Physician: Diego Miller MD Vital Signs Most recent to oldest [Reference Range]: 1 Temperature Tympanic [36.6-38.1 degC] 36.8 degC (12/28/14 9:05 AM) Peripheral Pulse Rate [60-100 bpm] 64 bpm (12/28/14 9:05 AM) Respiratory Rate [14-20 br/min] 16 br/min (12/28/14 9:05 AM) Blood Pressure [90-140/60-90 mmHg] 154/100 mmHg *HI* (12/28/14 9:05 AM) Problem List Condition Effective Dates Status [...] hypercholesterolemia Active (disorder)(Confirmed) Ulcer(Confirmed) Active 1Ct scan 06-07. Plan khai in 6 months Allergies, Adverse Reactions, Alerts No Known Medication Allergies Medications amLODIPine 10 mg oral tablet See Instructions, TAKE ONE TABLET BY MOUTH ONCE DAILY, # 30 tabs, 4 Refill(s), eRx: [facility] [id number], TAKE ONE TABLET BY MOUTH ONCE DAILY Start Date: 01/25/15 Status: Orderedfenofibrate 145 mg oral tablet See Instructions, TAKE ONE TABLET BY MOUTH ONCE DAILY, # 30 tabs, 5 Refill(s), eRx: [facility] 2428, TAKE ONE TABLET BY MOUTH ONCE DAILY Start Date: 01/11/15 Status: Orderedlosartan-hydrochlorothiazide 100 mg-25 mg oral tablet See Instructions, TAKE ONE TABLET BY MOUTH ONCE DAILY, # 30 tabs, eRx: [facility] 2428, TAKE ONE TABLET BY MOUTH ONCE DAILY Start Date: 03/23/15 Status: Orderedmeloxicam 7.5 mg oral tablet See Instructions, TAKE ONE TABLET BY MOUTH TWICE DAILY, # 60 tabs, eRx: [facility] 2428, TAKEONE TABLET BY MOUTH TWICE DAILY Start Date: 04/11/15 Status: OrderedMetoprolol Tartrate 100 mg oral tablet See Instructions, TAKE ONE TABLET BY MOUTH ONCE DAILY, # 30 tabs, 5 Refill(s), eRx: [facility] 2428, TAKE ONE TABLET BY MOUTH ONCE DAILY Start Date: 01/11/15 Status: OrderedNorco 10 mg-325 mg oral tablet 1-2 tabs, Oral, q6hr, as needed for pain, 2 weeks, # 60 tabs, 0 Refill(s) Start Date: 04/18/15 Status: OrderedpredniSONE 10 mg oral tablet See Instructions, Take 5 tabs for 2 days, then 4 for 2 days, then 3 for 2 days then 2 for 2 days, then 1 for 2 days, # 30 Each, 0 Refill(s), Pharmacy: [facility] 2428, Take 5 tabs for 2 days, then 4 for 2 days, then 3 for 2 days then 2 for 2 da... Start Date: 03/04/15 Status: Orderedsertraline 100 mg oral tablet See Instructions, TAKE ONE TABLET BY MOUTH EVERY DAY, # 30 tabs, 4 Refill(s), eRx: [facility]2428, TAKE ONE TABLET BY MOUTH EVERY DAY Start Date: 01/25/15 Status: Ordered Results No data available for this section Immunizations Vaccine Date Refusal Reason tetanus/diphth/pertuss (Tdap) adult/adol 03/19/14 influenza virus vaccine, inactivated 03/14/15 influenza virus vaccine, inactivated 03/07/15 influenza virus vaccine, inactivated 03/12/14 influenza virus vaccine, inactivated 03/12/14 Procedures Procedure Date Related Diagnosis Body Site BRVO1 04/19/15 Colonoscopy2 02/03/15 Arthrocentesis, aspiration and/or injection, 12/28/14 intermediate joint or bursa (eg, temporomandibular, acromioclavicular, wrist, elbow or ankle, olecranon bursa); without ultrasound guidance Arthrocentesis, aspiration and/or injection, 12/28/14 intermediate joint or bursa (eg, temporomandibular, acromioclavicular, wrist, elbow or ankle, olecranon bursa); without ultrasound guidance Arthrocentesis, aspiration and/or injection, 12/28/14 intermediate joint or bursa (eg, temporomandibular, acromioclavicular, wrist, elbow or ankle, olecranon bursa); without ultrasound guidance Arthrocentesis, aspiration and/or injection, 12/28/14 major joint or bursa (eg, shoulder, hip, knee, subacromial bursa); without ultrasound guidance Arthrocentesis, aspiration and/or injection, 12/28/14 major joint or bursa (eg, shoulder, hip, knee, subacromial bursa); without ultrasound guidance Arthrocentesis, aspiration and/or injection, 12/28/14 major joint or bursa (eg, shoulder, hip, knee, subacromial bursa); without ultrasound guidance Hip replacement-Right3 12/29/12 Hip replacement-Left 08/21/10 Cyst left wrist Hernia repair X3 Tonsillectomy Ulcer left foot 1DrMelvin Jay with [facility] Lvpsbxoriaf8Avzjgkaqtipo polyp, sister positive for colon cancer, repeat in 5 [id number] Social History Social History Type Response Smoking Status Former smoker Assessment and Plan Extracted from: Title: Office Visit Note Author: Diego Miller MD Date: 12/28/14 Assessment/Plan Benign essential hypertension Blood pressure is normal at home it up a little bit here today. Medications reviewed no changes are recommended. Laboratory studies from last visit reviewed. Follow-up in 3 months. Gout Chronic stable no recent flares and kidney current treatment. Hyperlipidemia Chronic stable no change in current treatment recommended. Knee osteoarthritis We've injected his knee previously any aspirin injection today. With that in mind using sterile technique the lateral aspect of the left knee was prepped with alcohol and 2 mL of Kenalog and 1 mL of lidocaine were injected using sterile no touch technique in the infrapatellar region. He tolerated this well. Sterile dressing was applied. Ordered: Arthro/Asp Major Joint Inj (Shoulder, Hip, Knee) LATERAL EPICONDYLITIS Lateral epicondyle of the left elbow was injected with 1 mL of lidocaine and 1 mL of triamcinolone today under sterile technique. He tolerated this well. Ordered: Arthro/Asp Intermediate Joint Inj (Wrist, Elbow, Ankle) Osteoarthritis Chronic stable no change in current treatment. Osteoarthritis of left elbow Left lateral epicondyle was injected as mentioned above. Ordered: Arthro/Asp Intermediate Joint Inj (Wrist, Elbow, Ankle) Orders: HYDROcodone-acetaminophen, 1-2 tabs, Oral, q6hr, as needed for pain, 2 weeks, # 60 tabs, 0 Refill(s)
--- OUTSIDE RECORDS SUMMARY | 2017-02-23 11:03 | External Medical Summary | Referral Summary ---
:1955 Author Organization [facility] [place] [place] [address] Care Team Providers Name Role Phone Diego Miller Primary Care Physician Encounter VC Date(s): 03/31/15 - 03/31/15 [facility] [place] [place] [address] Discharge Diagnosis: Benign essential hypertension Discharge Diagnosis: Gout (disorder) Discharge Diagnosis: Hyperlipidemia Discharge Diagnosis: Osteoarthritis Discharge Disposition: 01-Home or Self Care Attending Physician: Diego Miller MD Admitting Physician: Diego Miller MD Vital Signs Most recent to oldest [Reference Range]: 1 Temperature Tympanic [36.6-38.1 degC] 36.6 degC (03/31/15 8:04 AM) Peripheral Pulse Rate [60-100 bpm] 72 bpm (03/31/15 8:04 AM) Respiratory Rate [14-20 br/min] 16 br/min (03/31/15 8:04 AM) Blood Pressure [90-140/60-90 mmHg] 140/90 mmHg (03/31/15 8:04 AM) Problem List Condition Effective Dates Status [...] hypercholesterolemia Active (disorder)(Confirmed) Ulcer(Confirmed) Active 1Ct scan -. Plan khai in 6 months Allergies, Adverse Reactions, Alerts No Known Medication Allergies Medications amLODIPine 10 mg oral tablet See Instructions, TAKE ONE TABLET BY MOUTH ONCE DAILY, # 30 tabs, 4 Refill(s), eRx: [facility] 2428, TAKE ONE TABLET BY MOUTH ONCE DAILY Start Date: 01/25/15 Status: Orderedfenofibrate 145 mg oral tablet See Instructions, TAKE ONE TABLET BY MOUTH ONCE DAILY, # 30 tabs, 5 Refill(s), eRx: [facility] 2428, TAKE ONE TABLET BY MOUTH ONCE DAILY Start Date: 01/11/15 Status: Orderedlosartan-hydrochlorothiazide 100 mg-25 mg oral tablet See Instructions, TAKE ONE TABLET BY MOUTH ONCE DAILY, # 30 tabs, eRx: [facility] 2428, TAKE ONE TABLET BY MOUTH ONCE DAILY Start Date: 03/23/15 Status: Orderedmeloxicam 7.5 mg oral tablet See Instructions, TAKE ONE TABLET BY MOUTH TWICE DAILY, # 60 tabs, 5 Refill(s), eRx: [facility] 2428, TAKE ONE TABLET BY MOUTH TWICE DAILY Start Date: 10/11/14 Status: OrderedMetoprolol Tartrate 100 mg oral tablet See Instructions, TAKE ONE TABLET BY MOUTH ONCE DAILY, # 30 tabs, 5 Refill(s), eRx: [facility] 2428, TAKE ONE TABLET BY MOUTH ONCE DAILY Start Date: 01/11/15 Status: OrderedNorco 10 mg-325 mg oral tablet 1-2 tabs, Oral, q6hr, as needed for pain, 2 weeks, # 60 tabs, 0 Refill(s) Start Date: 03/31/15 Status: OrderedpredniSONE 10 mg oral tablet See Instructions, Take 5 tabs for 2 days, then 4 for 2 days, then 3 for 2 days then 2 for 2 days, then 1 for 2 days, # 30 Each, 0 Refill(s), Pharmacy: [facility] 2428, Take 5 tabs for 2 days, then 4 for 2 days, then 3 for 2 days then 2 for 2 da... Start Date: 03/04/15 Status: Orderedsertraline 100 mg oral tablet See Instructions, TAKE ONE TABLET BY MOUTH EVERY DAY, # 30 tabs, 4 Refill(s), eRx: [facility], TAKE ONE TABLET BY MOUTH EVERY DAY Start Date: 01/25/15 Status: Ordered Results No data available for this section Immunizations Vaccine Date Refusal Reason tetanus/diphth/pertuss (Tdap) adult/adol 03/19/14 influenza virus vaccine, inactivated 03/14/15 influenza virus vaccine, inactivated 03/07/15 influenza virus vaccine, inactivated 03/12/14 influenza virus vaccine, inactivated 03/12/14 Procedures Procedure Date Related Diagnosis Body Site Colonoscopy1 02/03/15 Hip replacement-Right2 12/29/12 Hip replacement-Left 08/21/10 Cyst left wrist Hernia repair X3 Tonsillectomy Ulcer left foot 1Hyperplastic polyp, sister positive for colon cancer, repeat in 5 [id number] Social History Social History Type Response Smoking Status Former smoker Assessment and Plan Extracted from: Title: Office Visit Note Author: Diego Miller MD Date: 03/31/15 Assessment/Plan Benign essential hypertension Blood pressures well-controlled. Medications and treatments reviewed no changes are recommended. Follow-up in 3 months. Fasting lab prior to that appointment. Report card reviewed and provided today. Ordered: Office Visit Level 3 Est 97953 Gout (disorder) Chronic stable with no recent flares no change in current treatment. Ordered: Office Visit Level 3 Est 88473 Hyperlipidemia Chronic stable on current treatment no changes recommended fasting lab in 3 months. Ordered: Office Visit Level 3 Est 68794 Osteoarthritis Chronic and stable no change in current treatment at this time. Ordered: Office Visit Level 3 Est [id number] Orders: HYDROcodone-acetaminophen, 1-2 tabs, Oral, q6hr, as needed for pain, 2 weeks, # 60 tabs, 0 Refill(s)
--- OUTSIDE RECORDS SUMMARY | 2017-02-23 11:03 | External Medical Summary | Referral Summary ---
:1955 Author Organization [facility], [place] [place] [address] Care Team Providers Name Role Phone Diego Miller Primary Care Physician Encounter VC Date(s): 06/30/15 - 06/30/15 [facility] [address] [place] [address] [place] Discharge Diagnosis: Benign essential hypertension Discharge Diagnosis: Mixed hyperlipidemia Discharge Diagnosis: Depression Discharge Diagnosis: Polyosteoarthritis Discharge Disposition: 01-Home or Self Care Attending Physician: Diego Miller MD Admitting Physician: Diego Miller MD Vital Signs Most recent to oldest [Reference Range]: 1 Temperature Tympanic [36.6-38.1 degC] 36.6 degC (06/30/15 8:04 AM) Peripheral Pulse Rate [60-100 bpm] 76 bpm (06/30/15 8:04 AM) Blood Pressure [90-140/60-90 mmHg] 138/82 mmHg (06/30/15 8:04 AM) Problem List Condition Effective Dates Status Health Status Informant Allergy(Confirmed) Active Benign essential hypertension Active (disorder)(Confirmed) Bronchitis(Confirmed) Active Chicken pox(Confirmed) Active Left wrist cyst(Confirmed) Active Osteoarthritis(Confirmed) Active Drug abuse(Confirmed) Active Ear infection(Confirmed) Active Foot ulcer Left(Confirmed) Active Gout (disorder)(Confirmed) Active Hep C(Confirmed) Active Hypertension(Confirmed) Active Lung nodules(Confirmed)1 Active Hyperlipidemia(Confirmed) Active Morbid obesity(Confirmed) Active patient Overactive bladder(Confirmed) Active Pneumonia(Confirmed) Active Pure hypercholesterolemia Active (disorder)(Confirmed) Depression(Confirmed) Active Ulcer(Confirmed) Active 1Ct scan 12-22. Plan khai in 6 months Allergies, Adverse Reactions, Alerts No Known Medication Allergies Medications amLODIPine 10 mg oral tablet See Instructions, TAKE ONE TABLET BY MOUTH ONCE DAILY, # 30 tabs, 5 Refill(s), eRx: [facility] 2428, TAKE ONE TABLET BY MOUTH ONCE DAILY Start Date: 06/27/15 Status: Orderedfenofibrate 145 mg oral tablet See Instructions, TAKE ONE TABLET BY MOUTH ONCE DAILY, # 30 tabs, 5 Refill(s), eRx: [facility] 2428, TAKE ONE TABLET BY MOUTH ONCE DAILY Start Date: 01/11/15 Status: Orderedlosartan-hydrochlorothiazide 100 mg-25 mg oral tablet See Instructions, TAKE ONE TABLET BY MOUTH ONCE DAILY, # 30 tabs, 2 Refill(s), eRx: [facility] 2428, TAKE ONE TABLET BY MOUTH ONCE DAILY Start Date: 04/25/15 Status: Orderedmeloxicam 7.5 mg oral tablet See Instructions, TAKE ONE TABLET BY MOUTH TWICE DAILY, # 60 tabs, 3 Refill(s), eRx: [facility] 2428, TAKE ONE TABLET BY MOUTH TWICE DAILY Start Date: 05/11/15 Status: OrderedMetoprolol Tartrate 100 mg oral tablet See Instructions, TAKE ONE TABLET BY MOUTH ONCE DAILY, # 30 tabs, 5 Refill(s), eRx: [facility] [id number], TAKE ONE TABLET BY MOUTH ONCE DAILY Start Date: 01/11/15 Status: OrderedNorco 10 mg-325 mg oral tablet 1-2 tabs, Oral, q6hr, as needed for pain, 2 weeks, # 60 tabs, 0 Refill(s) Start Date: 06/30/15 Status: OrderedpredniSONE 10 mg oral tablet See Instructions, Take 5 tabs for 2 days, then 4 for 2 days, then 3 for 2 days then 2 for 2 days, then 1 for 2 days, # 30 Each, 0 Refill(s), Pharmacy: [facility] [id number], Take 5 tabs for 2 days, then 4 for 2 days, then 3 for 2 days then 2 for 2 da... Start Date: 03/04/15 Status: Orderedsertraline 100 mg oral tablet See Instructions, TAKE ONE TABLET BY MOUTH ONCE DAILY, # 30 tabs, 5 Refill(s), eRx: [facility] 2428, TAKE ONE TABLET BY MOUTH ONCE DAILY Start Date: 06/24/15 Status: Ordered Results No data available for this section Immunizations Vaccine Date Refusal Reason tetanus/diphth/pertuss (Tdap) adult/adol 03/19/14 influenza virus vaccine, inactivated 03/14/15 influenza virus vaccine, inactivated 03/07/15 influenza virus vaccine, inactivated 03/12/14 influenza virus vaccine, inactivated 03/12/14 Procedures Procedure Date Related Diagnosis Body Site Arthrocentesis, aspiration and/or injection, 06/30/15 major joint or bursa (eg, shoulder, hip, knee, subacromial bursa); without ultrasound guidance BRVO1 04/19/15 Colonoscopy2 02/03/15 Hip replacement-Right3 12/29/12 Hip replacement-Left 08/21/10 Cyst left wrist Hernia repair X3 Tonsillectomy Ulcer left foot 1Dr. Mariluz Jay with [facility] Jrisydlceht4Xfpapmrqgzku polyp, sister positive for colon cancer, repeat in 5 [id number] Social History Social History Type Response Smoking Status Former smoker Assessment and Plan Extracted from: Title: Office Visit Note Author: Diego Miller MD Date: 06/30/15 Assessment/Plan Benign essential hypertension Blood pressures adequately controlled no change in current treatment. Recent laboratory studies reviewed. Glucose is mildly elevated otherwise unremarkable. Continue current treatment plan recheck in 3 months. Ordered: Office Visit Level 3 Est 20773 Depression Chronic stable no change in current treatment recommended. Ordered: Office Visit Level 3 Est 08087 Mixed hyperlipidemia Recent laboratory studies reviewed no changes are recommended at this time. Recent laboratory studies reviewed. Ordered: Office Visit Level 3 Est 11289 Polyosteoarthritis Chronic persistent and slowly worsening. Per his request wedid inject the left knee. Under sterile technique with no touch technique2 mL ofKenalog and 1 mL of lidocaine were injected through the medial joint space in the infrapatellar region. He tolerated this wellsterile dressing was applied. I encouraged him to go ahead and schedulean appointment to consider knee replacement with Dr. Rivas. Ordered: Arthro/Asp Major Joint Inj (Shoulder, Hip, Knee) Orders: HYDROcodone-acetaminophen, 1-2 tabs, Oral, q6hr, as needed for pain, 2 weeks, # 60 tabs, 0 Refill(s)
--- OUTSIDE RECORDS SUMMARY | 2017-02-23 11:03 | External Medical Summary | Referral Summary ---
:1955 Author Organization [facility], [place] [place] [address] Care Team Providers Name Role Phone Diego Miller Primary Care Physician Encounter VC Date(s): 03/24/15 - 03/24/15 [facility] [place] [place] [address] [place] Discharge Diagnosis: Shortness of breath Discharge Disposition: 01-Home or Self Care Attending Physician: Diego Miller MD Admitting Physician: Diego Miller MD Vital Signs Most recent to oldest [Reference Range]: 1 Temperature Tympanic [36.6-38.1 degC] 37.0 degC (03/24/15 1:50 PM) Peripheral Pulse Rate [60-100 bpm] 60 bpm (03/24/15 1:50 PM) Respiratory Rate [14-20 br/min] 20 br/min (03/24/15 1:50 PM) Blood Pressure [90-140/60-90 mmHg] 140/92 mmHg (03/24/15 1:50 PM) Problem List Condition Effective Dates Status [...] DAILY, # 30 tabs, 5 Refill(s), eRx: [facility] [id number], TAKE ONE TABLET BY MOUTH ONCE DAILY Start Date: 06/27/15 Status: Orderedfenofibrate 145 mg oral tablet See Instructions, TAKE ONE TABLET BY MOUTH ONCE DAILY, # 30 tabs, 4 Refill(s), eRx: [facility] [id number], TAKE ONE TABLET BY MOUTH ONCE DAILY Start Date: 07/08/15 Status: OrderedKeflex 500 mg oral capsule 500 mg 1 caps, Oral, q8hr, # 30 caps, 0 Refill(s), Pharmacy: [facility] [address], 1 caps Oral q8hr Start Date: 08/04/15 Status: Orderedlosartan-hydrochlorothiazide 100 mg-25 mg oral tablet See Instructions, TAKE ONE TABLET BY MOUTH ONCE DAILY, # 30 tabs, 5 Refill(s), eRx: [facility] [id number], TAKE ONE TABLET BY MOUTH ONCE DAILY Start Date: 07/21/15 Status: Orderedmeloxicam 7.5 mg oral tablet See Instructions, TAKE ONE TABLET BY MOUTH TWICE DAILY, # 60 tabs, eRx: [facility] [id number], TAKEONE TABLET BY MOUTH TWICE DAILY Start Date: 09/05/15 Status: OrderedMetoprolol Tartrate 100 mg oral tablet See Instructions, TAKE ONE TABLET BY MOUTH ONCE DAILY, # 30 tabs, 4 Refill(s), eRx: [facility] [id number], TAKE ONE TABLET BY MOUTH ONCE DAILY Start Date: 07/08/15 Status: OrderedNorco 10 mg-325 mg oral tablet 1-2 tabs, Oral, q6hr, as needed for pain, 2 weeks, # 60 tabs, 0 Refill(s) Start Date: 09/21/15 Status: Orderedsertraline 100 mg oral tablet See Instructions, TAKE ONE TABLET BY MOUTH ONCE DAILY, # 30 tabs, 5 Refill(s), eRx: [facility] [id number], TAKE ONE TABLET BY MOUTH ONCE DAILY Start Date: 06/24/15 Status: Ordered Results Hematology Most recent to oldest [Reference Range]: 1 WBC [4.8-10.8 10*3/uL] 17.2 10*3/uL *HI* (03/24/15 3:13 PM) RBC [4.60-6.20] 5.26 (03/24/15 3:13 PM) Hgb [14.0-18.0 gm/dL] 14.5 gm/dL (03/24/15 3:13 PM) Hct [42.0-52.0 %] 44.1 % (03/24/15 3:13 PM) MCV [82.0-99.0 fL] 83.8 fL (03/24/15 3:13 PM) MCH [27.0-32.0 pg] 27.6 pg (03/24/15 3:13 PM) MCHC [32.0-36.0 gm/dL] 32.9 gm/dL (03/24/15 3:13 PM) RDW [11.5-14.5 %] 15.4 % *HI* (03/24/15 3:13 PM) Platelet [150-400 10*3/uL] 329 10*3/uL (03/24/15 3:13 PM) MPV [8.8-14.8 fL] 10.7 fL (03/24/15 3:13 PM) Neutrophils [51-75 %] 69 % (03/24/15 3:13 PM) Band Man [0-8 %] 3 % (03/24/15 3:13 PM) Lymphocytes [20-46 %] 18 % *LOW* (03/24/15 3:13 PM) Abn Lymph Man [0-5 %] 3 % (03/24/15 3:13 PM) Monocytes [4-11 %] 7 % (03/24/15 3:13 PM) Eosinophils [0-4 %] 0 % (03/24/15 3:13 PM) Basophils [0-2 %] 0 % (03/24/15 3:13 PM) Neutro Absolute [1.90-7.00 10*3] 12.38 10*3 *HI* (03/24/15 3:13 PM) Lymph Absolute [0.80-3.30 10*3] 3.61 10*3 *HI* (03/24/15 3:13 PM) Kings Absolute [0.30-1.00 10*3] 1.20 10*3 *HI* (03/24/15 3:13 PM) Eos Absolute [0.00-0.50 10*3] 0.00 10*3 (03/24/15 3:13 PM) Baso Absolute [0.00-0.20 10*3] 0.00 10*3 (03/24/15 3:13 PM) Differential Manual *ABN* (03/24/15 3:13 PM) Chemistry Most recent to oldest [Reference Range]: 1 Sodium Lvl [135-144 mEq/L] 143 mEq/L (03/24/15 3:13 PM) Potassium Lvl [3.5-5.2 mEq/L] 4.1 mEq/L (03/24/15 3:13 PM) Chloride [99-111 mEq/L] 105 mEq/L (03/24/15 3:13 PM) CO2 [23-31 mEq/L] 27 mEq/L (03/24/15 3:13 PM) AGAP [3-20] 11 (03/24/15 3:13 PM) BUN [8-26 mg/dL] 26 mg/dL (03/24/15 3:13 PM) Glucose Lvl [70-99 mg/dL] 117 mg/dL *HI* (03/24/15 3:13 PM) Creatinine Lvl [0.72-1.25 mg/dL] 0.78 mg/dL (03/24/15 3:13 PM) eGFR [>60 mL/min] >60 mL/min 1 (03/24/15 3:13 PM) Calcium Lvl [8.9-10.5 mg/dL] 10.3 mg/dL (03/24/15 3:13 PM) Albumin Lvl [3.4-4.8 gm/dL] 4.5 gm/dL (03/24/15 3:13 PM) Total Protein [6.2-8.1 gm/dL] 7.1 gm/dL (03/24/15 3:13 PM) Globulin [1.8-4.0 gm/dL] 2.6 gm/dL (03/24/15 3:13 PM) ALT [0-55 U/L] 26 U/L (03/24/15 3:13 PM) AST [5-34 U/L] 16 U/L (03/24/15 3:13 PM) Alk Phos [40-150 U/L] 57 U/L (03/24/15 3:13 PM) Bili Total [0.2-1.2 mg/dL] 0.3 mg/dL (03/24/15 3:13 PM) 1Result Comment: Multiply eGFR results by 1.21 for race. Immunizations Vaccine Date Refusal Reason tetanus/diphth/pertuss (Tdap) adult/adol 03/19/14 influenza virus vaccine, inactivated 03/14/15 influenza virus vaccine, inactivated 03/07/15 influenza virus vaccine, inactivated 03/12/14 influenza virus vaccine, inactivated 03/12/14 Procedures Procedure Date Related Diagnosis Body Site BRVO1 04/19/15 Colonoscopy2 02/03/15 Hip replacement-Right3 12/29/12 Hip replacement-Left 08/21/10 Cyst left wrist Hernia repair X3 Tonsillectomy Ulcer left foot 1Dr. Mariluz Jay with [facility] Djjwyavgkcv1Zhsmpnspyynv polyp, sister positive for colon cancer, repeat in 5 [id number] Social History Social History Type Response Smoking Status Former smoker Assessment and Plan Extracted from: Title: Office Visit Note Author: Diego Miller MD Date: 03/24/15 Assessment/Plan Shortness of breath His chest x-ray and EKG appeared unremarkable to me EKG has some nonspecific changesbut nothingthat appeared ischemic. No signs of heart failure on chest x-ray. His oxyg en saturations levels are reasonable. He's feeling better knowing these tests are normal. I've recommended some lab work today and we'll double check things there. If he has ongoing symptoms he ne eds to let me know. We discussed considering a sleep study at some point since this problem seems to bemorenoticeable in the evenings. Continue other medications for the time being without tara sullivan. He has an appointment to see me next week we'll see how he is doing then. Ordered: CBC w/ Differential Comprehensive Metabolic Panel EKG with Interpretation [id number] Office Visit Level 4 Est 01616
--- OUTSIDE RECORDS SUMMARY | 2017-02-23 11:04 | External Medical Summary | Referral Summary ---
:1955 Author Organization [facility] [place] [place] [address] Care Team Providers Name Role Phone Diego Miller Primary Care Physician Encounter VC Date(s): 09/29/15 - 09/29/15 [facility] [place] [place] [address] [place] Discharge Diagnosis: Gout (disorder) Discharge Diagnosis: Polyosteoarthritis Discharge Diagnosis: Mixed hyperlipidemia Discharge Diagnosis: Essential (primary) hypertension Discharge Diagnosis: Medial epicondylitis, left elbow Discharge Disposition: 01-Home or Self Care Attending Physician: Diego Miller MD Admitting Physician: Diego Miller MD Vital Signs Most recent to oldest [Reference Range]: 1 Temperature Tympanic [36.6-38.1 degC] 36.6 degC (09/29/15 8:07 AM) Peripheral Pulse Rate [60-100 bpm] 76 bpm (09/29/15 8:07 AM) Respiratory Rate [14-20 br/min] 20 br/min (09/29/15 8:07 AM) Blood Pressure [90-140/60-90 mmHg] 140/90 mmHg (09/29/15 8:07 AM) Problem List Condition Effective Dates Status [...] (disorder)(Confirmed) Depression(Confirmed) Active Ulcer(Confirmed) Active 1Ct scan 06-07. Plan khai in 6 months Allergies, Adverse Reactions, Alerts No Known Medication Allergies Medications amLODIPine 10 mg oral tablet See Instructions, TAKE ONE TABLET BY MOUTH ONCE DAILY, # 30 tabs, 5 Refill(s), eRx: [facility] [id number], TAKE ONE TABLET BY MOUTH ONCE DAILY Start Date: 06/27/15 Status: Orderedfenofibrate 145 mg oral tablet See Instructions, TAKE ONE TABLET BY MOUTH ONCE DAILY, # 30 tabs, 4 Refill(s), eRx: [facility] [place] [id number], TAKE ONE TABLET BY MOUTH ONCE DAILY Start Date: 07/08/15 Status: OrderedKeflex 500 mg oral capsule 500 mg 1 caps, Oral, q8hr, # 30 caps, 0 Refill(s), Pharmacy: [facility] [address], 1 caps Oral q8hr Start Date: 08/04/15 Status: Orderedlosartan-hydrochlorothiazide 100 mg-25 mg oral tablet See Instructions, TAKE ONE TABLET BY MOUTH ONCE DAILY, # 30 tabs, 5 Refill(s), eRx: [facility] [id number], TAKE ONE TABLET BY MOUTH ONCE DAILY Start Date: 07/21/15 Status: Orderedmeloxicam 7.5 mg oral tablet See Instructions, TAKE ONE TABLET BY MOUTH TWICE DAILY, # 60 tabs, eRx: [facility] [id number], TAKEONE TABLET BY MOUTH TWICE DAILY Start Date: 09/05/15 Status: OrderedMetoprolol Tartrate 100 mg oral tablet See Instructions, TAKE ONE TABLET BY MOUTH ONCE DAILY, # 30 tabs, 4 Refill(s), eRx: [facility] [place] [id number], TAKE ONE TABLET BY MOUTH ONCE DAILY Start Date: 07/08/15 Status: OrderedNorco 10 mg-325 mg oral tablet 1-2 tabs, Oral, q6hr, as needed for pain, 2 weeks, # 60 tabs, 0 Refill(s) Start Date: 09/21/15 Status: Orderedsertraline 100 mg oral tablet See Instructions, TAKE ONE TABLET BY MOUTH ONCE DAILY, # 30 tabs, 5 Refill(s), eRx: [facility] [id number], TAKE ONE TABLET BY MOUTH ONCE DAILY Start Date: 06/24/15 Status: Ordered Results No data available for this section Immunizations Vaccine Date Refusal Reason tetanus/diphth/pertuss (Tdap) adult/adol 03/19/14 influenza virus vaccine, inactivated 03/14/15 influenza virus vaccine, inactivated 03/07/15 influenza virus vaccine, inactivated 03/12/14 influenza virus vaccine, inactivated 03/12/14 Procedures Procedure Date Related Diagnosis Body Site Arthrocentesis, aspiration and/or injection, 09/29/15 intermediate joint or bursa (eg, temporomandibular, acromioclavicular, wrist, elbow or ankle, olecranon bursa); without ultrasound guidance BRVO1 04/19/15 Colonoscopy2 02/03/15 Hip replacement-Right3 12/29/12 Hip replacement-Left 08/21/10 Cyst left wrist Hernia repair X3 Tonsillectomy Ulcer left foot 1DrMelvin Jay with [facility] Acghdhkmild2Iuppqvsjbvfr polyp, sister positive for colon cancer, repeat in 5 [id number] Social History Social History Type Response Smoking Status Former smoker Assessment and Plan Extracted from: Title: Office Visit Note Author: Diego Miller MD Date: 09/29/15 Assessment/Plan Essential (primary) hypertension, Essential (primary) hypertension Blood pressure is borderline but adequately controlled for now. Dictations and treatments reviewed no changes are recommended. Recheck in 3 months with fasting lab prior to that appointment. 4 card reviewed and provided. Ordered: Office Visit Level 4 Est 22493 Gout (disorder), Gout, unspecified No recent flares no change in current treatment recommended. Ordered: Office Visit Level 4 Est 23931 Medial epicondylitis, left elbow, Medial epicondylitis, left elbow With the patient's verbal consent I injected the medial epicondyle with 1 mL ofKenalog and 1 mL of lidocaine. He tolerated this well. This was done under sterile technique. If he doesn't improve he'll let me know. Ordered: Arthro/Asp Intermediate Joint Inj (Wrist, Elbow, Ankle) Office Visit Level 4 Est 20109 Mixed hyperlipidemia, Mixed hyperlipidemia Chronic stable no change in current treatment. Fasting lab prior to next appointment. Ordered: Office Visit Level 4 Est 71288 Polyosteoarthritis, Polyosteoarthritis, unspecified Continue current treatment plan for the problems or concerns follow-up. Ordered: Office Visit Level 4 Est 47100
--- OUTSIDE RECORDS SUMMARY | 2017-02-23 11:04 | External Medical Summary | Referral Summary ---
:1955 Author Organization [facility] Address [address] [place] [address] Care Team Providers Name Role Phone Diego Miller Primary Care Physician Encounter VC Date(s): 03/30/15 - 03/30/15 [facility] [address] [place] [address] [place] Discharge Disposition: 01-Home or Self Care Attending Physician: Vida Segundo DO Admitting Physician: Vida Segundo DO Vital Signs No data available for this section Problem List Condition Effective Dates Status Health Status Informant Allergy(Confirmed) Active Benign essential hypertension Active (disorder)(Confirmed) Bronchitis(Confirmed) Active Chicken pox(Confirmed) Active Left wrist cyst(Confirmed) Active Depression(Confirmed) Active Drug abuse(Confirmed) Active Ear infection(Confirmed) Active Foot ulcer Left(Confirmed) Active Gout (disorder)(Confirmed) Active Hep C(Confirmed) Active Hyperlipidemia(Confirmed) Active Hypertension(Confirmed) Active Lung nodules(Confirmed)1 Active Morbid obesity(Confirmed) Active patient Osteoarthritis(Confirmed) Active Overactive bladder(Confirmed) Active Pneumonia(Confirmed) Active Pure hypercholesterolemia Active (disorder)(Confirmed) Ulcer(Confirmed) Active 1Ct scan 12-. Plan khai in 6 months Allergies, Adverse Reactions, Alerts No Known Medication Allergies Medications amLODIPine 10 mg oral tablet See Instructions, TAKE ONE TABLET BY MOUTH ONCE DAILY, # 30 tabs, 4 Refill(s), eRx: [facility] 2428, TAKE ONE TABLET BY MOUTH ONCE DAILY Start Date: 01/25/15 Status: Orderedfenofibrate 145 mg oral tablet See Instructions, TAKE ONE TABLET BY MOUTH ONCE DAILY, # 30 tabs, 5 Refill(s), eRx: [facility] 2428, TAKE ONE TABLET BY MOUTH ONCE DAILY Start Date: 01/11/15 Status: Orderedlosartan-hydrochlorothiazide 100 mg-25 mg oral tablet See Instructions, TAKE ONE TABLET BY MOUTH ONCE DAILY, # 30 tabs, eRx: [facility] 2428, TAKE ONE TABLET BY MOUTH ONCE DAILY Start Date: 03/23/15 Status: Orderedmeloxicam 7.5 mg oral tablet See Instructions, TAKE ONE TABLET BY MOUTH TWICE DAILY, # 60 tabs, 5 Refill(s), eRx: [facility] 2428, TAKE ONE TABLET BY MOUTH TWICE DAILY Start Date: 10/11/14 Status: OrderedMetoprolol Tartrate 100 mg oral tablet See Instructions, TAKE ONE TABLET BY MOUTH ONCE DAILY, # 30 tabs, 5 Refill(s), eRx: [facility] 2428, TAKE ONE TABLET BY MOUTH ONCE DAILY Start Date: 01/11/15 Status: OrderedNorco 10 mg-325 mg oral tablet 1-2 tabs, Oral, q6hr, as needed for pain, 2 weeks, # 60 tabs, 0 Refill(s) Start Date: 03/15/15 Status: OrderedpredniSONE 10 mg oral tablet See Instructions, Take 5 tabs for 2 days, then 4 for 2 days, then 3 for 2 days then 2 for 2 days, then 1 for 2 days, # 30 Each, 0 Refill(s), Pharmacy: [facility] 2428, Take 5 tabs for 2 days, then 4 for 2 days, then 3 for 2 days then 2 for 2 da... Start Date: 03/04/15 Status: Orderedsertraline 100 mg oral tablet See Instructions, TAKE ONE TABLET BY MOUTH EVERY DAY, # 30 tabs, 4 Refill(s), eRx: [facility], TAKE ONE TABLET BY MOUTH EVERY DAY Start Date: 01/25/15 Status: Ordered Results No data available for this section Immunizations Vaccine Date Refusal Reason tetanus/diphth/pertuss (Tdap) adult/adol 03/19/14 influenza virus vaccine, inactivated 03/07/15 influenza virus vaccine, inactivated 03/12/14 influenza virus vaccine, inactivated 03/12/14 Procedures Procedure Date Related Diagnosis Body Site Biopsy of tongue; posterior one-third 03/30/15 Colonoscopy1 02/03/15 Hip replacement-Right2 12/29/12 Hip replacement-Left 08/21/10 Cyst left wrist Hernia repair X3 Tonsillectomy Ulcer left foot 1Hyperplastic polyp, sister positive for colon cancer, repeat in 5 [id number] Social History Social History Type Response Smoking Status Former smoker Assessment and Plan Extracted from: Title: Office Visit Note Author: Vida Segundo DO Date: 03/30/15 Assessment/Plan Lesion of tongue Right lateral s/p in office biopsy Will call pt with results
--- OUTSIDE RECORDS SUMMARY | 2017-02-23 11:04 | External Medical Summary | Referral Summary ---
:1955 Author Organization [facility] [address] [place] [address] Care Team Providers Name Role Phone Diego Miller Primary Care Physician Encounter VC Date(s): 02/07/15 - 02/07/15 [facility] [place] [address] [place] Discharge Diagnosis: Chest pain Discharge Diagnosis: Unifocal PVCs Discharge Disposition: 01-Home or Self Care Attending Physician: Diego Miller MD Admitting Physician: Diego Miller MD Vital Signs Most recent to oldest [Reference Range]: 1 Temperature Tympanic [36.6-38.1 degC] 36.0 degC *LOW* (02/07/15 9:48 AM) Peripheral Pulse Rate [60-100 bpm] 68 bpm (02/07/15 9:48 AM) Respiratory Rate [14-20 br/min] 16 br/min (02/07/15 9:48 AM) Blood Pressure [90-140/60-90 mmHg] 142/100 mmHg *HI* (02/07/15 9:48 AM) Problem List Condition Effective Dates Status [...] DAILY, # 30 tabs, 5 Refill(s), eRx: [place] [facility] [id number], TAKE ONE TABLET BY MOUTH ONCE DAILY Start Date: 06/27/15 Status: Orderedfenofibrate 145 mg oral tablet See Instructions, TAKE ONE TABLET BY MOUTH ONCE DAILY, # 30 tabs, 4 Refill(s), eRx: [place] [id number], TAKE ONE TABLET BY MOUTH ONCE DAILY Start Date: 07/08/15 Status: OrderedKeflex 500 mg oral capsule 500 mg 1 caps, Oral, q8hr, # 30 caps, 0 Refill(s), Pharmacy: [place] [facility] [id number], 1 caps Oral q8hr Start Date: 08/04/15 Status: Orderedlosartan-hydrochlorothiazide 100 mg-25 mg oral tablet See Instructions, TAKE ONE TABLET BY MOUTH ONCE DAILY, # 30 tabs, 5 Refill(s), eRx: [place] [id number], TAKE ONE TABLET BY MOUTH ONCE DAILY Start Date: 07/21/15 Status: Orderedmeloxicam 7.5 mg oral tablet See Instructions, TAKE ONE TABLET BY MOUTH TWICE DAILY, # 60 tabs, 3 Refill(s), eRx: [place] [id number], TAKE ONE TABLET BY MOUTH TWICE DAILY Start Date: 05/11/15 Status: OrderedMetoprolol Tartrate 100 mg oral tablet See Instructions, TAKE ONE TABLET BY MOUTH ONCE DAILY, # 30 tabs, 4 Refill(s), eRx: [place] [id number], TAKE ONE TABLET BY MOUTH ONCE DAILY Start Date: 07/08/15 Status: OrderedNorco 10 mg-325 mg oral tablet 1-2 tabs, Oral, q6hr, as needed for pain, 2 weeks, # 60 tabs, 0 Refill(s) Start Date: 08/10/15 Status: Orderedsertraline 100 mg oral tablet See Instructions, TAKE ONE TABLET BY MOUTH ONCE DAILY, # 30 tabs, 5 Refill(s), eRx: [place] [id number], TAKE ONE TABLET BY MOUTH ONCE DAILY [...] left foot 1DrMelvin Jay with Vitreo Retinal Udvqpnbwmus5Dgnwyutmyrwv polyp, sister positive for colon cancer, repeat in 5 [id number] Social History Social History Type Response Smoking Status Former smoker Assessment and Plan Extracted from: Title: Office Visit Note Author: Diego Miller MD Date: 02/07/15 Assessment/Plan Chest pain I think this is likely musculoskeletal chest wall pain. We did do an EKG today and it shows no acute abnormalities. No further workup unless he is having further or worsening pain or discomfort. Ordered: EKG with Interpretation 24478 Office Visit Level 3 Est 04241 Unifocal PVCs No treatment necessary at this time. Ordered: EKG with Interpretation 45415 Office Visit Level 3 Est 60453 Orders: HYDROcodone-acetaminophen, 1-2 tabs, Oral, q6hr, as needed for pain, 2 weeks, # 60 tabs, 0 Refill(s)
--- OUTSIDE RECORDS SUMMARY | 2017-02-23 11:04 | External Medical Summary | Referral Summary ---
:1955 Author Organization [facility] Address [address] [place] [address] Care Team Providers Name Role Phone Diego Miller Primary Care Physician Encounter VC Date(s): 07/05/15 - 07/05/15 [facility] [address] [place] [address] [place] Discharge Disposition: 01-Home or Self Care Attending Physician: Vida Segundo DO Admitting Physician: Vida Segundo DO Referring Physician: Diego Miller MD Vital Signs No data available for [...] DAILY, # 30 tabs, 5 Refill(s), eRx: [id number], TAKE ONE TABLET BY MOUTH ONCE DAILY Start Date: 06/27/15 Status: Orderedfenofibrate 145 mg oral tablet See Instructions, TAKE ONE TABLET BY MOUTH ONCE DAILY, # 30 tabs, 5 Refill(s), eRx: [facility] 2428, TAKE ONE TABLET BY MOUTH ONCE DAILY Start Date: 01/11/15 Status: Orderedlosartan-hydrochlorothiazide 100 mg-25 mg oral tablet See Instructions, TAKE ONE TABLET BY MOUTH ONCE DAILY, # 30 tabs, 2 Refill(s), eRx: [facility] 2428, TAKE ONE TABLET BY MOUTH ONCE DAILY Start Date: 04/25/15 Status: Orderedmeloxicam 7.5 mg oral tablet See Instructions, TAKE ONE TABLET BY MOUTH TWICE DAILY, # 60 tabs, 3 Refill(s), eRx: [facility] 2428, TAKE ONE TABLET BY MOUTH TWICE DAILY Start Date: 05/11/15 Status: OrderedMetoprolol Tartrate 100 mg oral tablet See Instructions, TAKE ONE TABLET BY MOUTH ONCE DAILY, # 30 tabs, 5 Refill(s), eRx: [place] [id number], TAKE ONE TABLET BY MOUTH ONCE DAILY [...] days, # 30 Each, 0 Refill(s), Pharmacy: [place] [id number], Take 5 tabs for 2 days, then 4 for 2 days, then 3 for 2 days then 2 for 2 da... Start Date: 03/04/15 Status: Orderedsertraline 100 mg oral tablet See Instructions, TAKE ONE TABLET BY MOUTH ONCE DAILY, # 30 tabs, 5 Refill(s), eRx: [facility] 2428, TAKE ONE TABLET BY [...] Hernia repair X3 Tonsillectomy Ulcer left foot 1Dyulissa Jay with Vitreo Retinal Qmtomsvqsdv3Opeghciwespj polyp, sister positive for colon cancer, repeat in 5 [id number] Social History Social History Type Response Smoking Status Former smoker Assessment and Plan No data available for this section
--- OUTSIDE RECORDS SUMMARY | 2017-02-23 11:04 | External Medical Summary | Referral Summary ---
:1955 Author Organization [facility] [place] [address] Care Team Providers Name Role Phone Diego Miller Primary Care Physician Encounter VC Date(s): 12/28/14 - 12/28/14 [facility] [place] [address] [place] Discharge Diagnosis: [...] DAILY, # 30 tabs, 4 Refill(s), eRx: [facility] 2428, TAKE ONE TABLET BY MOUTH ONCE DAILY Start Date: 01/25/15 Status: Orderedfenofibrate 145 mg oral tablet See Instructions, TAKE ONE TABLET BY MOUTH ONCE DAILY, # 30 tabs, 5 Refill(s), eRx: [facility] 2428, TAKE ONE TABLET BY MOUTH ONCE DAILY Start Date: 01/11/15 Status: Orderedlosartan-hydrochlorothiazide 100 mg-25 mg oral tablet See Instructions, TAKE ONE TABLET BY MOUTH ONCE DAILY, # 30 tabs, eRx: [facility] 2428, TAKE ONE TABLET BY MOUTH ONCE DAILY Start Date: 03/23/15 Status: Orderedmeloxicam 7.5 mg oral tablet See Instructions, TAKE ONE TABLET BY MOUTH TWICE DAILY, # 60 tabs, eRx: [facility], TAKEONE TABLET BY MOUTH TWICE DAILY Start Date: 04/11/15 Status: OrderedMetoprolol Tartrate 100 mg oral tablet See Instructions, TAKE ONE TABLET BY MOUTH ONCE DAILY, # 30 tabs, 5 Refill(s), eRx: [facility] 2428, TAKE ONE TABLET BY MOUTH ONCE [...] days, # 30 Each, 0 Refill(s), Pharmacy: [facility] 2428, Take 5 tabs for 2 days, then 4 for 2 days, then 3 for 2 days then 2 for 2 da... Start Date: 03/04/15 Status: Orderedsertraline 100 mg oral tablet See Instructions, TAKE ONE TABLET BY MOUTH EVERY DAY, # 30 tabs, 4 Refill(s), eRx: [facility], TAKE ONE TABLET BY MOUTH EVERY DAY [...] left foot 1DrMelvin Jay with Vitreo Retinal Jplgxyrgcmx0Fyqgfbtesqbl polyp, sister positive for colon cancer, repeat in 5 [id number] Social History Social History Type Response Smoking [...]
--- OUTSIDE RECORDS SUMMARY | 2017-02-23 11:04 | External Medical Summary | Referral Summary ---
:1955 Author Organization [facility] Address [address] [place] [address] [place] [address] Care Team Providers Name Role Phone Diego Miller Primary Care Physician Encounter VC Date(s): 03/24/15 - 03/24/15 [facility] [address] [place] [address] [place] Discharge Diagnosis: Shortness of breath Discharge Disposition: 01-Home or Self Care Attending Physician: Diego iMller MD Admitting Physician: Diego Miller MD Vital [...] hypercholesterolemia Active (disorder)(Confirmed) Ulcer(Confirmed) Active 1Ct scan 12-22. Plan khai in 6 months Allergies, Adverse Reactions, Alerts No Known Medication Allergies Medications amLODIPine 10 mg oral tablet See Instructions, TAKE ONE TABLET BY MOUTH ONCE DAILY, # 30 tabs, 4 Refill(s), eRx: [facility] 2428, TAKE ONE TABLET BY MOUTH ONCE DAILY Start Date: 01/25/15 Status: Orderedfenofibrate 145 mg oral tablet See Instructions, TAKE ONE TABLET BY MOUTH ONCE DAILY, # 30 tabs, 5 Refill(s), eRx: [facility] 2428, TAKE ONE TABLET BY MOUTH ONCE DAILY Start Date: 01/11/15 Status: Orderedlosartan-hydrochlorothiazide 100 mg-25 mg oral tablet See Instructions, TAKE ONE TABLET BY MOUTH ONCE DAILY, # 30 tabs, eRx: [facility] 2428, TAKE ONE TABLET BY MOUTH ONCE DAILY Start Date: 03/23/15 Status: Orderedmeloxicam 7.5 mg oral tablet See Instructions, TAKE ONE TABLET BY MOUTH TWICE DAILY, # 60 tabs, 5 Refill(s), eRx: [facility] 2428, TAKE ONE TABLET BY MOUTH TWICE DAILY Start Date: 10/11/14 Status: OrderedMetoprolol Tartrate 100 mg oral tablet See Instructions, TAKE ONE TABLET BY MOUTH ONCE DAILY, # 30 tabs, 5 Refill(s), eRx: [facility] 2428, TAKE ONE TABLET BY MOUTH ONCE [...] days, # 30 Each, 0 Refill(s), Pharmacy: [facility] 2428, Take 5 tabs for 2 days, then 4 for 2 days, then 3 for 2 days then 2 for 2 da... Start Date: 03/04/15 Status: Orderedsertraline 100 mg oral tablet See Instructions, TAKE ONE TABLET BY MOUTH EVERY DAY, # 30 tabs, 4 Refill(s), eRx: [id number], TAKE ONE TABLET BY MOUTH EVERY DAY Start Date: 01/25/15 Status: Ordered Results Hematology Most recent to [...] 10*3] 3.61 10*3 *HI* (03/24/15 3:13 PM) [place] Absolute [0.30-1.00 10*3] 1.20 10*3 *HI* (03/24/15 [...] positive for colon cancer, repeat in 5 [id number] Social History Social History Type Response Smoking [...] Differential Comprehensive Metabolic Panel EKG with Interpretation 24268 Office Visit Level 4 Est 46180
--- OUTSIDE RECORDS SUMMARY | 2017-02-23 11:04 | External Medical Summary | Referral Summary ---
:1955 Author Organization [facility], [address] [place] [address] Care Team Providers Name Role Phone Diego Miller Primary Care Physician Encounter VC Date(s): 03/21/15 - 03/21/15 [facility] [address] [place] [address] [place] Discharge Diagnosis: [...] DAILY, # 30 tabs, 4 Refill(s), eRx: [facility] 2428, TAKE ONE TABLET BY MOUTH ONCE DAILY Start Date: 01/25/15 Status: Orderedfenofibrate 145 mg oral tablet See Instructions, TAKE ONE TABLET BY MOUTH ONCE DAILY, # 30 tabs, 5 Refill(s), eRx: [facility] 2428, TAKE ONE TABLET BY MOUTH ONCE DAILY Start Date: 01/11/15 Status: Orderedlosartan-hydrochlorothiazide 100 mg-25 mg oral tablet See Instructions, TAKE ONE TABLET BY MOUTH EVERY DAY, # 30 tabs, 5 Refill(s), Pharmacy: [place] [id number] Start Date: 09/23/14 Status: Orderedmeloxicam 7.5 mg oral tablet See Instructions, TAKE ONE TABLET BY MOUTH TWICE DAILY, # 60 tabs, 5 Refill(s), eRx: [facility] 2428, TAKE ONE TABLET BY MOUTH TWICE DAILY Start Date: 10/11/14 Status: OrderedMetoprolol Tartrate 100 mg oral tablet See Instructions, TAKE ONE TABLET BY MOUTH ONCE DAILY, # 30 tabs, 5 Refill(s), eRx: [facility] 2428, TAKE ONE TABLET BY MOUTH ONCE [...] days, # 30 Each, 0 Refill(s), Pharmacy: [place] [id number], Take 5 tabs for 2 days, then 4 for 2 days, then 3 for 2 days then 2 for 2 da... Start Date: 03/04/15 Status: Orderedsertraline 100 mg oral tablet See Instructions, TAKE ONE TABLET BY MOUTH EVERY DAY, # 30 tabs, 4 Refill(s), eRx: [facility], TAKE ONE TABLET BY MOUTH EVERY DAY Start Date: 01/25/15 Status: Ordered Results No data available for this section Immunizations Vaccine Date Refusal Reason tetanus/diphth/pertuss (Tdap) adult/adol 03/19/14 influenza virus vaccine, inactivated 03/07/15 influenza virus vaccine, inactivated 03/12/14 influenza virus vaccine, inactivated 03/12/14 Procedures Procedure Date Related Diagnosis Body Site Arthrocentesis, aspiration and/or injection, 03/21/15 major joint or bursa (eg, shoulder, hip, knee, subacromial bursa); without ultrasound guidance Colonoscopy1 02/03/15 Hip replacement-Right2 12/29/12 Hip replacement-Left 08/21/10 Cyst left wrist Hernia repair X3 Tonsillectomy Ulcer left foot 1Hyperplastic polyp, sister positive for colon cancer, repeat in 5 [id number] Social History Social History Type Response Smoking [...]
--- OUTSIDE RECORDS SUMMARY | 2017-02-23 11:04 | External Medical Summary | Referral Summary ---
:1955 Author Organization [facility], [address] [place] [address] Care Team Providers Name Role Phone Diego Miller Primary Care Physician Encounter VC Date(s): 06/06/15 - 06/06/15 [facility] [address] [place] [address] Discharge Diagnosis: Benign essential hypertension Discharge Diagnosis: Acute bacterial bronchitis Discharge Diagnosis: Osteoarthritis Discharge Disposition: 01-Home or Self Care Attending Physician: Diego Miller MD Admitting Physician: Diego Miller MD Vital Signs Most recent to oldest [Reference Range]: 1 Temperature Tympanic [36.6-38.1 degC] 36.6 degC (06/06/15 11:20 AM) Peripheral Pulse Rate [60-100 bpm] 76 bpm (06/06/15 11:20 AM) Respiratory Rate [14-20 br/min] 16 br/min (06/06/15 11:20 AM) Blood Pressure [90-140/60-90 mmHg] 144/100 mmHg *HI* (06/06/15 11:20 AM) Problem List Condition Effective Dates Status Health Status Informant Allergy(Confirmed) Active Benign essential hypertension Active (disorder)(Confirmed) Bronchitis(Confirmed) Active Chicken pox(Confirmed) Active Left wrist cyst(Confirmed) Active Osteoarthritis(Confirmed) Active Depression(Confirmed) Active Drug abuse(Confirmed) Active Ear [...] DAILY, # 30 tabs, 4 Refill(s), eRx: [place] [id number], TAKE ONE TABLET BY MOUTH ONCE DAILY Start Date: 01/25/15 Status: Orderedfenofibrate 145 mg oral tablet See Instructions, TAKE ONE TABLET BY MOUTH ONCE DAILY, # 30 tabs, 5 Refill(s), eRx: [place] [id number], TAKE ONE TABLET BY MOUTH ONCE DAILY Start Date: 01/11/15 Status: OrderedLevaquin 500 mg oral tablet 500 mg 1 tabs, Oral, q24hr, X 10 days, # 10 tabs, 0 Refill(s), Pharmacy: [place] [id number], 1 tabs Oral q24hr,x10 days Start Date: 06/06/15 Stop Date: 06/16/15 Status: Orderedlosartan-hydrochlorothiazide 100 mg-25 mg oral tablet See Instructions, TAKE ONE TABLET BY MOUTH ONCE DAILY, # 30 tabs, 2 Refill(s), eRx: [place] [address], TAKE ONE TABLET BY MOUTH ONCE DAILY Start Date: 04/25/15 Status: Orderedmeloxicam 7.5 mg oral tablet See Instructions, TAKE ONE TABLET BY MOUTH TWICE DAILY, # 60 tabs, 3 Refill(s), eRx: [place] [address], TAKE ONE TABLET BY MOUTH TWICE DAILY Start Date: 05/11/15 Status: OrderedMetoprolol Tartrate 100 mg oral tablet See Instructions, TAKE ONE TABLET BY MOUTH ONCE DAILY, # 30 tabs, 5 Refill(s), eRx: [place] [id number], TAKE ONE TABLET BY MOUTH ONCE DAILY [...] days, # 30 Each, 0 Refill(s), Pharmacy: [place] [id number], Take 5 tabs for 2 days, then 4 for 2 days, then 3 for 2 days then 2 for 2 da... Start Date: 03/04/15 Status: Orderedsertraline 100 mg oral tablet See Instructions, TAKE ONE TABLET BY MOUTH EVERY DAY, # 30 tabs, 4 Refill(s), eRx: [id number], TAKE ONE TABLET BY MOUTH EVERY DAY [...] left foot 1DrMelvin Jay with Vitreo Retinal Apbckdcbuzk0Sdtcozienhig polyp, sister positive for colon cancer, repeat in 5 [id number] Social History Social History Type Response Smoking Status Former smoker Assessment and Plan Extracted from: Title: Office Visit Note Author: Diego Miller MD Date: 06/06/15 Assessment/Plan Acute bacterial bronchitis, Acute nasopharyngitis [common cold] I've recommended Levaquin 500 mg daily for 10 days. He may use plain Mucinex as needed. Avoid decongestants. Ordered: Office Visit Level 3 Est 55952 Benign essential hypertension, Essential (primary) hypertension Blood pressure is high here today again I encouraged him to avoid decongestants and continue his regular medications. Ordered: Office Visit Level 3 Est 84362 Osteoarthritis, Polyosteoarthritis, unspecified His right knee is more bothersome. I told him we need to wait at least 3 months between injections. He may be looking at needing a new knee and the near future. Ordered: Office Visit Level 3 Est 17424 Orders: levofloxacin, 500 mg 1 tabs, Oral, q24hr, X 10 days, # 10 tabs, 0 Refill(s), Pharmacy: [facility]28, 1 tabs Oral q24hr,x10 days
--- OUTSIDE RECORDS SUMMARY | 2017-02-23 11:04 | External Medical Summary | Referral Summary ---
:1955 Author Organization [facility] [address] [place] [address] Care Team Providers Name Role Phone Diego Miller Primary Care Physician Encounter VC Date(s): 12/29/15 - 12/29/15 [facility] [address] [place] [address] [place] Discharge Diagnosis: Mixed hyperlipidemia Discharge Diagnosis: Benign essential hypertension Discharge Diagnosis: Depression Discharge Diagnosis: Polyosteoarthritis Discharge Disposition: 01-Home or Self Care Attending Physician: Diego Miller MD Admitting Physician: Diego Miller MD Vital Signs Most recent to oldest [Reference Range]: 1 Temperature Tympanic [36.6-38.1 degC] 36.8 degC (12/29/15 8:04 AM) Peripheral Pulse Rate [60-100 bpm] 76 bpm (12/29/15 8:04 AM) Respiratory Rate [14-20 br/min] 16 br/min (12/29/15 8:04 AM) Blood Pressure [90-140/60-90 mmHg] 162/100 mmHg *HI* (12/29/15 8:04 AM) Problem List Condition Effective Dates [...] DAILY, # 30 tabs, 5 Refill(s), eRx: [facility] 2428, TAKE ONE TABLET BY MOUTH ONCE DAILY Start Date: 12/26/15 Status: Orderedfenofibrate 145 mg oral tablet See Instructions, TAKE ONE TABLET BY MOUTH ONCE DAILY, # 30 tabs, eRx: [facility] 2428, TAKE ONE TABLET BY MOUTH ONCE DAILY Start Date: 12/05/15 Status: Orderedlosartan-hydrochlorothiazide 100 mg-25 mg oral tablet See Instructions, TAKE ONE TABLET BY MOUTH ONCE DAILY, # 30 tabs, 5 Refill(s), eRx: [facility] 2428, TAKE ONE TABLET BY MOUTH ONCE DAILY Start Date: 07/21/15 Status: Orderedmeloxicam 7.5 mg oral tablet See Instructions, TAKE ONE TABLET BY MOUTH TWICE DAILY, # 60 tabs, eRx: [facility] 2428, TAKEONE TABLET BY MOUTH TWICE DAILY Start Date: 12/05/15 Status: OrderedMetoprolol Tartrate 100 mg oral tablet See Instructions, TAKE ONE TABLET BY MOUTH ONCE DAILY, # 30 tabs, eRx: [facility] 2428, TAKE ONE TABLET BY MOUTH ONCE DAILY Start Date: 12/05/15 Status: OrderedNorco 10 mg-325 mg oral tablet 1-2 tabs, Oral, q6hr, as needed for pain, 2 weeks, # 60 tabs, 0 Refill(s) Start Date: 12/20/15 Status: Orderedsertraline 100 mg oral tablet See Instructions, TAKE ONE TABLET BY MOUTH ONCE DAILY, # 30 tabs, 2 Refill(s), eRx: [facility] 2428, TAKE ONE TABLET BY MOUTH ONCE DAILY Start Date: 12/20/15 Status: Ordered Results No data available for [...] foot 1Dr. Mariluz Jay with Vitreo Retinal Xihbzoryhss0Lngjmctgfdci polyp, sister positive for colon cancer, repeat in 5 [id number] Social History Social History Type Response Smoking Status Former smoker Assessment and Plan Extracted from: Title: Office Visit Note Author: Diego Miller MD Date: 12/29/15 Assessment/Plan 1.Benign essential hypertension, Essential (primary) hypertension Blood pressure is elevated here today. I've asked him to continue to check at home and if he is consistentlyin the 140s or higheror above 90 systolic and diastolic he'll let us know. For the time being will continue current treatment. Recent laboratory studies were reviewed today. Report card reviewed and provided as well. Follow-up in 3 months. Ordered: Office Visit Level 4 Est 97226 2.Depression, Major depressive disorder, recurrent, mild Chronic stable no change in current treatment. Ordered: Office Visit Level 4 Est 68627 3.Mixed hyperlipidemia, Mixed hyperlipidemia Recent laboratory studies reviewed overall relatively stable no change in current treatment. Ordered: Office Visit Level 4 Est 79387 4.Polyosteoarthritis, Polyosteoarthritis, unspecified Neck and back pain primarilyare related to his arthritis. We talked about considering epidurals although not sure that terribly relevant beneficial without radicular symptoms. I told him that I really think surgical treatments or not an option for him. No change in treatment plan for the time being follow-up in 3 months. Ordered: Office Visit Level 4 Est 75654
--- OUTSIDE RECORDS SUMMARY | 2017-02-23 11:04 | External Medical Summary | Referral Summary ---
:1955 Author Organization [facility] [place] [address] Care Team Providers Name Role Phone Diego Miller Primary Care Physician Encounter VC Date(s): 07/06/16 - 07/06/16 [facility] [place] [address]- Discharge Diagnosis: Osteoarthritis of right knee Discharge Diagnosis: Mixed hyperlipidemia Discharge Diagnosis: Depression Discharge Diagnosis: Polyosteoarthritis Discharge Diagnosis: Benign essential hypertension Discharge Diagnosis: Lateral epicondylitis of left elbow Discharge Disposition: 01-Home or Self Care Attending Physician: Diego Miller MD Admitting Physician: Diego Miller MD Vital Signs Most recent to oldest [Reference Range]: 1 Temperature Tympanic [36.6-38.1 degC] 36.8 degC (07/06/16 8:01 AM) Peripheral Pulse Rate [60-100 bpm] 96 bpm (07/06/16 8:01 AM) Blood Pressure [90-140/60-90 mmHg] 144/92 mmHg *HI* (07/06/16 8:01 AM) Problem List Condition Effective Dates Status [...] # 30 tabs, 5 Refill(s), eRx: [facility] 2428 Start Date: 06/26/16 Status: Orderedfenofibrate 145 mg oral tablet See Instructions, TAKE ONE TABLET BY MOUTH ONCE DAILY, # 30 tabs, 5 Refill(s), eRx: [facility] 2428, TAKE ONE TABLET BY MOUTH ONCE DAILY Start Date: 05/07/16 Status: Orderedlosartan-hydrochlorothiazide 100 mg-25 mg oral tablet See Instructions, TAKE ONE TABLET BY MOUTH ONCE DAILY, # 30 tabs, 5 Refill(s), eRx: [facility] 2428, TAKE ONE TABLET BY MOUTH ONCE DAILY Start Date: 01/19/16 Status: Orderedmeloxicam 7.5 mg oral tablet See Instructions, TAKE ONE TABLET BY MOUTH TWICE DAILY, # 60 tabs, 3 Refill(s), eRx: [facility] 2428, TAKE ONE TABLET BY MOUTH TWICE DAILY Start Date: 05/07/16 Status: OrderedMetoprolol Tartrate 100 mg oral tablet See Instructions, TAKE ONE TABLET BY MOUTH ONCE DAILY, # 30 tabs, 5 Refill(s), eRx: [facility] 2428, TAKE ONE TABLET BY MOUTH ONCE DAILY Start Date: 05/07/16 Status: OrderedNorco 10 mg-325 mg oral tablet 1-2 tabs, Oral, q6hr, as needed for pain, 2 weeks, # 60 tabs, 0 Refill(s) Start Date: 07/03/16 Status: Orderedsertraline 100 mg oral tablet See Instructions, TAKE ONE TABLET BY MOUTH ONCE DAILY, # 30 tabs, 5 Refill(s), eRx: [facility] 2428, TAKE ONE TABLET BY MOUTH ONCE DAILY Start Date: 03/19/16 Status: Ordered Results No data available for this section Immunizations Given and Recorded Vaccine Date Status Refusal Reason tetanus/diphth/pertuss (Tdap) adult/adol 03/19/14 Given influenza virus vaccine, inactivated 04/02/16 Recorded influenza virus vaccine, inactivated 03/14/15 Recorded influenza virus vaccine, inactivated 03/07/15 Recorded influenza virus vaccine, inactivated 03/12/14 Recorded influenza virus vaccine, inactivated 03/12/14 Recorded pneumococcal 23-polyvalent vaccine 04/05/16 Given Procedures Procedure Date Related Diagnosis Body Site Arthrocentesis, aspiration and/or injection, 07/06/16 intermediate joint or bursa (eg, temporomandibular, acromioclavicular, wrist, elbow or ankle, olecranon bursa); without ultrasound guidance Arthrocentesis, aspiration and/or injection, 07/06/16 major joint or bursa (eg, shoulder, hip, knee, subacromial bursa); without ultrasound guidance BRVO1 04/19/15 Colonoscopy2 02/03/15 Hip replacement-Right3 12/29/12 Hip replacement-Left 08/21/10 Cyst left wrist Hernia repair X3 Tonsillectomy Ulcer left foot 1DrMelivn Jay with [facility] Sjgzrvirfpc7Xfnjcjjbxwvj polyp, sister positive for colon cancer, repeat in 5 [id number] Social History Social History Type Response Smoking Status Former smoker Assessment and Plan Extracted from: Title: Office Visit Note Author: Diego Miller MD Date: 07/06/16 Assessment/Plan 1.Benign essential hypertension Blood pressures a little high here. Been running normal at home. Continue current medications without change. Follow-up in 3 months. Recent laboratory studies reviewed and report card reviewed and provided today. Ordered: Office Visit Level 4 Est 02516 2.Depression Chronic stable on current treatment no changes recommended. Ordered: Office Visit Level 4 Est 10117 3.Mixed hyperlipidemia Recent laboratory studies reviewed andchest are alltry glycerin levels are relatively stable no changes are recommended at this time. Ordered: Office Visit Level 4 Est 89422 4.Polyosteoarthritis Continue current treatment without change. Ordered: Office Visit Level 4 Est 22842 5.Osteoarthritis of right knee Under sterile technique with the patient's permissionthe right knee was injected from the medial joint space in the infrapatellar region with 2 mL of Kenalog and 1 mL of lidocaine. He tolerated this wellsterile dressing was applied. Ordered: Arthro/Asp Major Joint Inj (Shoulder, Hip, Knee) 6.Lateral epicondylitis of left elbow Under sterile technique the left lateral epicondyle was injectedwith 1 mL ofKenalog and 1 mL of lidocaine. He tolerated this well. Ordered: Arthro/Asp Intermediate Joint Inj (Wrist, Elbow, Ankle) 69159 Three-month follow-up encouraged for chronic healthmanagement.
--- OUTSIDE RECORDS SUMMARY | 2017-02-23 11:04 | External Medical Summary | Referral Summary ---
:1955 Author Organization [facility] [place] [address] Care Team Providers Name Role Phone Diego Miller Primary Care Physician Encounter VC Date(s): 12/28/14 - 12/28/14 [facility] [place] [address] [place] Discharge Diagnosis: [...] DAILY, # 30 tabs, 5 Refill(s), eRx: [facility], TAKE ONE TABLET BY MOUTH ONCE DAILY Start Date: 06/27/15 Status: Orderedfenofibrate 145 mg oral tablet See Instructions, TAKE ONE TABLET BY MOUTH ONCE DAILY, # 30 tabs, 4 Refill(s), eRx: [facility] 2428, TAKE ONE TABLET BY MOUTH ONCE DAILY Start Date: 07/08/15 Status: Orderedlosartan-hydrochlorothiazide 100 mg-25 mg oral tablet See Instructions, TAKE ONE TABLET BY MOUTH ONCE DAILY, # 30 tabs, 2 Refill(s), eRx: [facility] 2428, TAKE ONE TABLET BY MOUTH ONCE DAILY Start Date: 04/25/15 Status: Orderedmeloxicam 7.5 mg oral tablet See Instructions, TAKE ONE TABLET BY MOUTH TWICE DAILY, # 60 tabs, 3 Refill(s), eRx: [facility] 2428, TAKE ONE TABLET BY MOUTH TWICE DAILY Start Date: 05/11/15 Status: OrderedMetoprolol Tartrate 100 mg oral tablet See Instructions, TAKE ONE TABLET BY MOUTH ONCE DAILY, # 30 tabs, 4 Refill(s), eRx: [facility]28, TAKE ONE TABLET BY [...] days, # 30 Each, 0 Refill(s), Pharmacy: [facility] 2428, Take 5 tabs for 2 days, then 4 for 2 days, then 3 for 2 days then 2 for 2 da... Start Date: 03/04/15 Status: Orderedsertraline 100 mg oral tablet See Instructions, TAKE ONE TABLET BY MOUTH ONCE DAILY, # 30 tabs, 5 Refill(s), eRx: [facility]30, TAKE ONE TABLET BY MOUTH ONCE DAILY [...] repair X3 Tonsillectomy Ulcer left foot 1Dr. MMelvin Handydon with [facility] Tswdjksnkno9Ymevzasxprho polyp, sister positive for colon cancer, repeat in 5 [id number] Social History Social History Type Response Smoking [...]
--- OUTSIDE RECORDS SUMMARY | 2017-02-23 11:04 | External Medical Summary | Referral Summary ---
:1955 Author Organization [facility], [facility] Address [address] [place] [address] [place] [address] Care Team Providers Name Role Phone Paul Diego Gottlieb Primary Care Physician Encounter VC Date(s): 12/22/14 - 12/22/14 [facility], [address] [place] [address]- Discharge Disposition: 01-Home or Self Care Attending Physician: Robin Gunderson MD Admitting Physician: Robin Gunderson MD Vital Signs No data available for [...] DAILY, # 30 tabs, 5 Refill(s), eRx: [facility], TAKE ONE TABLET BY MOUTH ONCE DAILY Start Date: 06/27/15 Status: Orderedfenofibrate 145 mg oral tablet See Instructions, TAKE ONE TABLET BY MOUTH ONCE DAILY, # 30 tabs, 5 Refill(s), eRx: [facility], TAKE ONE TABLET BY MOUTH ONCE DAILY Start Date: 01/11/15 Status: Orderedlosartan-hydrochlorothiazide 100 mg-25 mg oral tablet See Instructions, TAKE ONE TABLET BY MOUTH ONCE DAILY, # 30 tabs, 2 Refill(s), eRx: [facility] 2428, TAKE ONE TABLET BY MOUTH ONCE DAILY Start Date: 04/25/15 Status: Orderedmeloxicam 7.5 mg oral tablet See Instructions, TAKE ONE TABLET BY MOUTH TWICE DAILY, # 60 tabs, 3 Refill(s), eRx: [facility] 2428, TAKE ONE TABLET BY MOUTH TWICE DAILY Start Date: 05/11/15 Status: OrderedMetoprolol Tartrate 100 mg oral tablet See Instructions, TAKE ONE TABLET BY MOUTH ONCE DAILY, # 30 tabs, 5 Refill(s), eRx: [facility] 2428, TAKE ONE TABLET BY [...] days, # 30 Each, 0 Refill(s), Pharmacy: [facility] 2428, Take 5 tabs for 2 days, then 4 for 2 days, then 3 for 2 days then 2 for 2 da... Start Date: 03/04/15 Status: Orderedsertraline 100 mg oral tablet See Instructions, TAKE ONE TABLET BY MOUTH ONCE DAILY, # 30 tabs, 5 Refill(s), eRx: [facility] 2428, TAKE ONE TABLET BY [...] left foot 1DrMelvin Jay with [facility] Weaiehudqhw1Mxndiodrzops polyp, sister positive for colon cancer, repeat in 5 [id number] Social History Social History Type Response Smoking Status Former smoker Assessment and Plan No data available for this section
--- OUTSIDE RECORDS SUMMARY | 2017-02-23 11:04 | External Medical Summary | Referral Summary ---
:1955 Author Organization [facility] Address [address] [place] [address] Care Team Providers Name Role Phone Diego Miller Primary Care Physician Encounter VC Date(s): 03/30/15 - 03/30/15 [facility] [address] [place] [address] [place] Discharge Disposition: 01-Home or [...] DAILY, # 30 tabs, 5 Refill(s), eRx: [facility], TAKE ONE TABLET BY MOUTH ONCE DAILY Start Date: 06/27/15 Status: Orderedfenofibrate 145 mg oral tablet See Instructions, TAKE ONE TABLET BY MOUTH ONCE DAILY, # 30 tabs, 4 Refill(s), eRx: [place] [address], TAKE ONE TABLET BY MOUTH ONCE DAILY Start Date: 07/08/15 Status: OrderedKeflex 500 mg oral capsule 500 mg 1 caps, Oral, q8hr, # 30 caps, 0 Refill(s), Pharmacy: [place] [address], 1 caps Oral q8hr Start Date: 08/04/15 Status: Orderedlosartan-hydrochlorothiazide 100 mg-25 mg oral tablet See Instructions, TAKE ONE TABLET BY MOUTH ONCE DAILY, # 30 tabs, 5 Refill(s), eRx: [place] [address], TAKE ONE TABLET BY MOUTH ONCE DAILY Start Date: 07/21/15 Status: Orderedmeloxicam 7.5 mg oral tablet See Instructions, TAKE ONE TABLET BY MOUTH TWICE DAILY, # 60 tabs, eRx: [place] [address], TAKEONE TABLET BY MOUTH TWICE DAILY Start Date: 09/05/15 Status: OrderedMetoprolol Tartrate 100 mg oral tablet See Instructions, TAKE ONE TABLET BY MOUTH ONCE DAILY, # 30 tabs, 4 Refill(s), eRx: [facility] [address], TAKE ONE TABLET BY MOUTH ONCE DAILY Start Date: 07/08/15 Status: OrderedNorco 10 mg-325 mg oral tablet 1-2 tabs, Oral, q6hr, as needed for pain, 2 weeks, # 60 tabs, 0 Refill(s) Start Date: 09/21/15 Status: Orderedsertraline 100 mg oral tablet See Instructions, TAKE ONE TABLET BY MOUTH ONCE DAILY, # 30 tabs, 5 Refill(s), eRx: [facility] [address], TAKE ONE TABLET BY MOUTH ONCE DAILY Start Date: 06/24/15 Status: Ordered Results No data available for this section Immunizations Vaccine Date Refusal Reason tetanus/diphth/pertuss (Tdap) adult/adol 03/19/14 influenza virus vaccine, inactivated 03/14/15 influenza virus vaccine, inactivated 03/07/15 influenza virus vaccine, inactivated 03/12/14 influenza virus vaccine, inactivated 03/12/14 Procedures Procedure Date Related Diagnosis Body Site BRVO1 04/19/15 Biopsy of tongue; posterior one-third 03/30/15 Colonoscopy2 02/03/15 Hip replacement-Right3 12/29/12 Hip replacement-Left 08/21/10 Cyst left wrist Hernia repair X3 Tonsillectomy Ulcer left foot 1DrMelvin Jay with [facility] Eowxquclvib1Xggpzovzvcdv polyp, sister positive for colon cancer, repeat in 5 [id number] Social History Social History Type Response Smoking Status Former smoker Assessment and Plan Extracted from: Title: Office Visit Note Author: Vida Segundo DO Date: 03/30/15 Assessment/Plan Lesion of tongue Right lateral s/p in office biopsy Will call pt with results
--- OUTSIDE RECORDS SUMMARY | 2017-02-23 11:04 | External Medical Summary | Referral Summary ---
:1955 Author Organization [facility] [address] [place] [address] Care Team Providers Name Role Phone Diego Miller Primary Care Physician Encounter VC Date(s): 03/04/15 - 03/04/15 [facility] [place] [address] [place] Discharge Diagnosis: Osteoarthritis Discharge Diagnosis: Aphthous ulcer Discharge Disposition: 01-Home or Self Care Attending Physician: Diego Miller MD Admitting Physician: Diego Miller MD Vital Signs Most recent to oldest [Reference Range]: 1 Temperature Tympanic [36.6-38.1 degC] 36.7 degC (03/04/15 9:07 AM) Apical Heart Rate [60-100 bpm] 96 bpm (03/04/15 9:07 AM) Blood Pressure [90-140/60-90 mmHg] 126/80 mmHg (03/04/15 9:07 AM) SpO2 98 % (03/04/15 9:07 AM) Problem List Condition Effective Dates Status [...] DAILY, # 30 tabs, 5 Refill(s), eRx: [place] [address], TAKE ONE TABLET BY MOUTH ONCE DAILY Start Date: 06/27/15 Status: Orderedfenofibrate 145 mg oral tablet See Instructions, TAKE ONE TABLET BY MOUTH ONCE DAILY, # 30 tabs, 4 Refill(s), eRx: [place] [address], TAKE ONE TABLET BY MOUTH ONCE DAILY Start Date: 07/08/15 Status: OrderedKeflex 500 mg oral capsule 500 mg 1 caps, Oral, q8hr, # 30 caps, 0 Refill(s), Pharmacy: [place] [address], 1 caps Oral q8hr Start Date: 08/04/15 Status: Orderedlosartan-hydrochlorothiazide 100 mg-25 mg oral tablet See Instructions, TAKE ONE TABLET BY MOUTH ONCE DAILY, # 30 tabs, 5 Refill(s), eRx: [place] [address], TAKE ONE TABLET BY MOUTH ONCE DAILY Start Date: 07/21/15 Status: Orderedmeloxicam 7.5 mg oral tablet See Instructions, TAKE ONE TABLET BY MOUTH TWICE DAILY, # 60 tabs, eRx: [place] [address], TAKEONE TABLET BY MOUTH TWICE DAILY Start Date: 09/05/15 Status: OrderedMetoprolol Tartrate 100 mg oral tablet See Instructions, TAKE ONE TABLET BY MOUTH ONCE DAILY, # 30 tabs, 4 Refill(s), eRx: [place] [address], TAKE ONE TABLET BY MOUTH ONCE DAILY Start Date: 07/08/15 Status: OrderedNorco 10 mg-325 mg oral tablet 1-2 tabs, Oral, q6hr, as needed for pain, 2 weeks, # 60 tabs, 0 Refill(s) Start Date: 08/31/15 Status: Orderedsertraline 100 mg oral tablet See Instructions, TAKE ONE TABLET BY MOUTH ONCE DAILY, # 30 tabs, 5 Refill(s), eRx: [place] [address], TAKE ONE TABLET BY MOUTH ONCE DAILY [...] foot 1Dr. Mariluz Jay with [facility] Lbbqqymtphm4Ifiednsptxxm polyp, sister positive for colon cancer, repeat in 5 [id number] Social History Social History Type Response Smoking Status Former smoker Assessment and Plan Extracted from: Title: Office Visit Note Author: Diego Miller MD Date: 03/04/15 Assessment/Plan Aphthous ulcer, Aphthous ulcer. This looks like a benign aphthous ulcer. Reassurance at this time. If it's persisting for another 2-3 weeks we may need to consider a biopsy. will keep me posted on how it's doing. Ordered: Office Visit Level 3 Est 08232 Osteoarthritis, OSTEOARTHROSIS, UNSPECIFIED WHETHER GENERALIZED OR LOCALIZED , INVOLVING UNSPECIFIED SITE Amended give him a round of prednisone and see if we can calm appears to be a mild exacerbation his arthritis down. If not improving we may consider an injection into his right knee and the next couple weeks. Ordered: Office Visit Level 3 Est 91379 Orders: predniSONE, See Instructions, Take 5 tabs for 2 days, then 4 for 2 days, then 3 for 2 days then 2 for 2 days, then 1 for 2 days, # 30 Each, 0 Refill(s), Pharmacy: [facility]28, Take 5 tabs for 2 days, then 4 for 2 days, then 3 for 2 days then 2 for 2 da...
--- OUTSIDE RECORDS SUMMARY | 2017-02-23 11:04 | External Medical Summary | Referral Summary ---
:1955 Author Organization [facility] [place] [address] Care Team Providers Name Role Phone Diego Miller Primary Care Physician Encounter VC Date(s): 03/31/15 - 03/31/15 [facility] [place] [address]- Discharge Diagnosis: Benign essential hypertension Discharge Diagnosis: [...] 30 tabs, 5 Refill(s), eRx: [place] [address], TAKE ONE TABLET BY MOUTH ONCE DAILY Start Date: 06/27/15 Status: Orderedfenofibrate 145 mg oral tablet See Instructions, TAKE ONE TABLET BY MOUTH ONCE DAILY, # 30 tabs, 4 Refill(s), eRx: [place] [address], TAKE ONE TABLET BY MOUTH ONCE DAILY Start Date: 07/08/15 Status: OrderedKeflex 500 mg oral capsule 500 mg 1 caps, Oral, q8hr, # 30 caps, 0 Refill(s), Pharmacy: [place] [address], 1 caps Oral q8hr Start Date: 08/04/15 Status: Orderedlosartan-hydrochlorothiazide 100 mg-25 mg oral tablet See Instructions, TAKE ONE TABLET BY MOUTH ONCE DAILY, # 30 tabs, 5 Refill(s), eRx: [place] [address], TAKE ONE TABLET BY MOUTH ONCE DAILY Start Date: 07/21/15 Status: Orderedmeloxicam 7.5 mg oral tablet See Instructions, TAKE ONE TABLET BY MOUTH TWICE DAILY, # 60 tabs, eRx: [place] [address], TAKEONE TABLET BY MOUTH TWICE DAILY Start Date: 10/10/15 Status: OrderedMetoprolol Tartrate 100 mg oral tablet See Instructions, TAKE ONE TABLET BY MOUTH ONCE DAILY, # 30 tabs, 4 Refill(s), eRx: [place] [address], TAKE ONE TABLET BY MOUTH ONCE DAILY Start Date: 07/08/15 Status: OrderedNorco 10 mg-325 mg oral tablet 1-2 tabs, Oral, q6hr, as needed for pain, 2 weeks, # 60 tabs, 0 Refill(s) Start Date: 09/21/15 Status: Orderedsertraline 100 mg oral tablet See Instructions, TAKE ONE TABLET BY MOUTH ONCE DAILY, # 30 tabs, 5 Refill(s), eRx: [place] [address], TAKE ONE TABLET BY MOUTH ONCE DAILY [...] left foot 1DrMelvin Jay with [facility] Llmtkdulkns1Sxmqxoyvdrtw polyp, sister positive for colon cancer, repeat in 5 [id number] Social History Social History Type Response Smoking Status Former smoker Assessment and Plan Extracted from: Title: Office Visit Note Author: Diego Miller MD Date: 03/31/15 Assessment/Plan Benign essential hypertension Blood pressures well-controlled. Medications and treatments reviewed no changes are recommended. Follow-up in 3 months. Fasting lab prior to that appointment. Report card reviewed and provided today. Ordered: Office Visit Level 3 Est 09052 Gout (disorder) Chronic stable with no recent flares no change in current treatment. Ordered: Office Visit Level 3 Est 31034 Hyperlipidemia Chronic stable on current treatment no changes recommended fasting lab in 3 months. Ordered: Office Visit Level 3 Est 22443 Osteoarthritis Chronic and stable no change in current treatment at this time. Ordered: Office Visit Level 3 Est 51453 Orders: HYDROcodone-acetaminophen, 1-2 tabs, Oral, q6hr, as needed for pain, 2 weeks, # 60 tabs, 0 Refill(s)
--- OUTSIDE RECORDS SUMMARY | 2017-02-23 11:05 | External Medical Summary | Referral Summary ---
:1955 Author Organization [facility] [place] [address] Care Team Providers Name Role Phone Diego Miller Primary Care Physician Encounter VC Date(s): 12/28/14 - 12/28/14 [facility] [place] [address] [place] Discharge Diagnosis: [...] DAILY, # 30 tabs, 4 Refill(s), eRx: [facility] 2428, TAKE ONE TABLET BY MOUTH ONCE DAILY Start Date: 01/25/15 Status: Orderedfenofibrate 145 mg oral tablet See Instructions, TAKE ONE TABLET BY MOUTH ONCE DAILY, # 30 tabs, 5 Refill(s), eRx: [facility] 2428, TAKE ONE TABLET BY MOUTH ONCE DAILY Start Date: 01/11/15 Status: Orderedlosartan-hydrochlorothiazide 100 mg-25 mg oral tablet See Instructions, TAKE ONE TABLET BY MOUTH ONCE DAILY, # 30 tabs, eRx: [facility] 2428, TAKE ONE TABLET BY MOUTH ONCE DAILY Start Date: 03/23/15 Status: Orderedmeloxicam 7.5 mg oral tablet See Instructions, TAKE ONE TABLET BY MOUTH TWICE DAILY, # 60 tabs, eRx: [facility] 2428, TAKEONE TABLET BY MOUTH TWICE DAILY Start Date: 04/11/15 Status: OrderedMetoprolol Tartrate 100 mg oral tablet See Instructions, TAKE ONE TABLET BY MOUTH ONCE DAILY, # 30 tabs, 5 Refill(s), eRx: [facility] 2428, TAKE ONE TABLET BY MOUTH [...] days, # 30 Each, 0 Refill(s), Pharmacy: [facility] 2428, Take 5 tabs for 2 days, then 4 for 2 days, then 3 for 2 days then 2 for 2 da... Start Date: 03/04/15 Status: Orderedsertraline 100 mg oral tablet See Instructions, TAKE ONE TABLET BY MOUTH EVERY DAY, # 30 tabs, 4 Refill(s), eRx: [facility], TAKE ONE TABLET BY MOUTH EVERY [...] left foot 1DrMelvin Jay with [facility] Csieevfmkof6Shuxmiodxpcv polyp, sister positive for colon cancer, repeat in 5 [id number] Social History Social History Type Response Smoking [...]
[2017-02-23] MEDS: SALINE FLUSH 10ml SYRINGE IVF PRN ×2 (11:25→12:22)
[2017-02-23] MEDS ORDERED: FUROSEMIDE 40 MG/4 ML INJECTION IVP ONE (12:15)
[2017-02-23] MEDS ORDERED: DiltiaZEM 25 MG/5 ML INJECTION IVP ONE (12:22)
[2017-02-23 14:01] VITALS: BMI 43.4
[2017-02-23] MEDS ORDERED: HYDROCODONE/APAP 10 MG/325 MG TABLET PO PRN (15:56)
[2017-02-23] MEDS ORDERED: FUROSEMIDE 40 MG/4 ML INJECTION IVP SCH (17:00)
[2017-02-23] MEDS: DiltiaZEM Drip 125 MG in NS 100 ML IV SCH (19:00)
[2017-02-23] MEDS ORDERED: SYSTANE EYE EACH EYE PRN (20:09)
[2017-02-23] MEDS: POM AMLODIPINE 10 MG TABLET PO SCH (20:18)
[2017-02-23] MEDS ORDERED: FLECAINIDE 50 MG TABLET PO SCH (21:00)
[2017-02-23] MEDS ORDERED: ENOXAPARIN 150 MG/ML INJECTION SQ SCH (22:00)
[2017-02-24] MEDS: HYDROCODONE/APAP 10 MG/325 MG TABLET PO PRN ×4 (00:14→20:40)
[2017-02-24] MEDS: TRAMADOL 50 MG TABLET PO PRN (04:35)
[2017-02-24] MEDS: DiltiaZEM Drip 125 MG in NS 100 ML IV SCH (08:19)
[2017-02-24] MEDS ORDERED: RIVAROXABAN 20 MG TABLET PO SCH (09:15)
--- NOTE | 2017-02-24 09:20 | XRay Report ---
INDICATION: Dyspnea PROCEDURE: CHEST 2-VIEWS UPRIGHT (PA & LAT) Encounter: Initial COMPARISON: None FINDINGS: There is suggestion of fine hazy opacity in the lower lung trinh, some of which is probably due to overlapping soft tissues and body habitus. No lobar consolidation. There is no pleural effusion or pneumothorax. Cardiac silhouette is moderately enlarged. Mediastinal contours and pulmonary vascularity are normal. Degenerative change in the spine. IMPRESSION: Possible lower lobe opacities could represent atypical or viral pneumonia. .
[2017-02-24] MEDS: SERTRALINE 100 MG PO SCH (09:26)
[2017-02-24] MEDS: FENOFIBRATE 145 MG PO SCH (09:26)
[2017-02-24] MEDS: MELOXICAM 7.5 MG TABLET PO SCH (09:26)
[2017-02-24] MEDS: ASPIRIN *EC* 81 MG TABLET PO SCH (09:28)
[2017-02-24] MEDS: SALINE FLUSH 10ml SYRINGE IVF PRN (14:01)
--- NOTE | 2017-02-24 14:59 | Cardiology History & Physical ---
History of Present Illness HPI: Patient is a 61yo morbidly obese male with a history of tobacco abuse, COPD, and HTN that presented to the ER with complaints of increased shortness of air. Atrial fibrillation at an accelerated rate was identified on the monitor. BNP> 1900. Denies history of CHF or afib. Condition improved with IV cardizem push, duo neb, and IV lasix. Admits to not breathing well at night. Family history of CHF, CAD, and sleep apnea. Will admit to continue medical therapy and monitor. Review of Systems - Constitutional Constitutional: Absent: anorexia, chills, fever(s), headache(s) - EENMT Eyes: Absent: loss of vision, pain - Cardiovascular Cardiovascular: Present: dyspnea on exertion, orthopnea. Absent: chest pain, palpitations, syncope - Respiratory Respiratory: Present: dyspnea, dyspnea on exertion. Absent: cough, wheezing - Gastrointestinal Gastrointestinal: Absent: abdominal pain, change in bowel habits - Musculoskeletal Musculoskeletal: Present: arthralgias, back pain - Neurological Neurological: Absent: abnormal gait, abnormal speech, focal weakness - Psychiatric Psychiatric: Absent: depression, difficulty concentrating - Endocrine Endocrine: Absent: flushing, heat intolerance PFSH Patient Stated Medical History Cardiac Arrhythmia Yes: new a-fib Congestive Heart Failure Yes Chronic Obstructive Pulmonary Yes Disease (COPD) Hepatitis Yes: treated Depression Yes Clinic Medical History (Last Reviewed 01/08/17 @ 09:02 by Efraín Rivas MD) COPD (chronic obstructive pulmonary disease) (Chronic Medical) Depression (Chronic Medical) HTN (hypertension) (Chronic Medical) High cholesterol (Chronic Medical) Osteoarthritis (Chronic Medical) Medical History Updates: HTN, COPD Surgical History: Wade FAITH, hernia repair x3 Family History: Family History (Last Reviewed 01/08/17 @ 09:02 by Efraín Rivas MD) Father Diabetes HTN (hypertension) Mother Dementia Stroke - Social History Smoking status: Former smoker second hand exposure: No Substance use type: does not use Alcohol intake: never Medications Home Medications Medication Instructions Recorded Confirmed Type Amlodipine Besylate 10 mg PO HS #0 04/30/08 02/23/17 History Meloxicam 7.5 mg PO DAILY #0 04/30/08 02/23/17 History Fenofibrate [Tricor] 145 mg PO DAILY #0 08/18/10 02/23/17 History Metoprolol Succinate 100 mg PO DAILY #0 08/18/10 02/23/17 History Losartan/Hydrochlorothiazide 1 each PO DAILY #0 12/26/12 02/23/17 History [Losartan-Hctz 100-25 mg Tab] Sertraline HCl 100 mg PO DAILY #0 tab 02/03/15 02/23/17 History Ryegate 10 mg-acetaminophen 325 mg 1 tab PO Q8H PRN 01/07/17 02/23/17 History tablet Saw [place] Fruit [Saw [place]] 450 mg PO DAILY 02/23/17 02/23/17 History Systane Eye Drops 1 drop PRN PRN 02/23/17 02/23/17 History Allergies Allergy/AdvReac Type Severity Reaction Status Date / Time No Known Allergies Allergy Mild Verified 02/23/17 10:50 Exam Vital signs: Temperature 97.9 F 02/24/17 11:47 Pulse Rate 81 02/24/17 12:00 Respiratory Rate 37 H 02/24/17 11:45 Blood Pressure 128/97 H 02/24/17 11:45 Pulse Oximetry 93 02/24/17 11:45 - Constitutional well developed, morbidly obese, cooperative - Routine HEENT Exam Eye: Present: EOMI ENT: Present: mucous membranes moist Nose: moist mucous membranes - Routine Neck Exam Present: JVD - Routine Respiratory Exam Present: dyspnea, distant breath sounds - Routine Cardiovascular Exam Present: S1, S2, irregular rhythm - Routine Abdominal Exam Present: soft - Routine Extremities Exam Present: no edema. Absent: cyanosis, clubbing - Routine Skin Exam Present: intact - Routine Neurological Exam Present: alert, oriented X3 - Routine Psychiatric Exam Present: normal affect, normal thought process Results 02/25/17 05:26 02/25/17 05:26 Cardiac Enzymes 02/23/17 02/23/17 02/24/17 Range/Units 16:18 21:54 04:37 AST 28 (17-59) U/L Troponin I 0.013 < 0.012 (0-0.12) ng/ml Comprehensive Metabolic Panel 02/24/17 Range/Units 04:37 Sodium 146 H (134-144) MEQ/L Potassium 3.0 L (3.6-5) MEQ/L Chloride 100 (98-107) MEQ/L Carbon Dioxide 31 H (22-30) MEQ/L BUN 21.0 H (9-20) MG/DL Creatinine 0.7 L (0.8-1.5) MG/DL Glucose 144 H (75-110) MG/DL Calcium 10.0 (8.4-10.2) MG/DL AST 28 (17-59) U/L ALT 47 (21-72) U/L Alkaline Phosphatase 50 (38-126) U/L Total Protein 7.4 (6.3-8.2) G/DL Albumin 4.5 (3.5-5.0) G/DL Intake and Output 02/23/17 02/24/17 02/24/17 22:59 06:59 14:59 Intake Total 495 / 495 385 / 385 903.750 / 903.750 Output Total 1875 / 1875 400 / 400 400 / 400 Balance -1380 / -1380 -15 / -15 503.750 / 503.750 Intake: IV 23.750 / 23.750 Cardizem IV 125 mg In 23.750 / 23.750 Normal Saline 100 ml @ 5 mls/hr IV PRN [facility] Rx#: [id number] Oral 470 / 470 320 / 320 880 / 880 Output: Urine 1875 / 1875 400 / 400 400 / 400 Other: Urine Appearance Clear Cloudy Clear Urine Color Yellow Light Juana Dark Yellow Urine Odor Normal Weight 124.3 kg Patient Weight 02/25/17 06:59 Weight 124.3 kg - Imaging and Cardiology Echo: pending EKG results: image reviewed - EKG Interpretation EKG shows: atrial fibrillation Hospital Course This is a general summary of the patient's hospital course. For more details refer to the complete medical record. Hospital course: Cardizem gtt overnight. Rate controlled although remains in Afib. Drip stopped and po started. Therapeutic lovenox stopped this morning and Xarelto started. Medical Scientist and sodium rising. Losartan/HCTZ stopped. Will monitor blood pressure over night. Continue diuresis. Required oxygen overnight to keep sats >90%. Overnight pulse ox to assess for sleep apnea. RCAT for COPD. Sating >90% on RA while awake. Echo pending. Possibly discharge in the morning. Time spent with patient: 25 - 35 minutes DVT Prophylaxis: Xarelto GI Prophylaxis: Protonix Assessment and Plan (1) A-fib Current visit: Yes Status: Acute (2) CHF (congestive heart failure) Current visit: Yes Status: Acute (3) COPD (chronic obstructive pulmonary disease) Current visit: Yes Status: Acute (4) Morbid (severe) obesity due to excess calories Current visit: Yes Status: Acute - Attestation Attestation Narrative: 02/25/17 13:11 Recommendation After examining the patient I agree with the above assessment. I am involved in the formulation of the patient's plan of care. Sepsis Assessment - Evaluation Sepsis screening result: No Definite Risk
[2017-02-24] MEDS: PANTOPRAZOLE 40 MG TABLET PO SCH (17:38)
[2017-02-24] MEDS: POM AMLODIPINE 10 MG TABLET PO SCH (20:41)
[2017-02-24] MEDS ORDERED: FUROSEMIDE 100 MG/10 ML INJECTION IVP SCH (21:00)
[2017-02-25] MEDS: HYDROCODONE/APAP 10 MG/325 MG TABLET PO PRN ×3 (04:36→16:43)
[2017-02-25] MEDS: PANTOPRAZOLE 40 MG TABLET PO SCH (06:45)
[2017-02-25] MEDS ORDERED: FUROSEMIDE 100 MG/10 ML INJECTION IVP SCH (08:00)
[2017-02-25] MEDS: TRAMADOL 50 MG TABLET PO PRN ×2 (08:41→21:34)
[2017-02-25] MEDS: ASPIRIN *EC* 81 MG TABLET PO SCH (08:42)
[2017-02-25] MEDS: MELOXICAM 7.5 MG TABLET PO SCH (08:45)
[2017-02-25] MEDS: FENOFIBRATE 145 MG PO SCH (08:46)
[2017-02-25] MEDS: SERTRALINE 100 MG PO SCH (08:47)
--- NOTE | 2017-02-25 15:53 | Cardiology Progress Note ---
Subjective Principal diagnosis: CHF, AFIB <Kassy Kraus - 02/25/17 15:56> Interval history: Diego is seen in follow up for CHF and Atrial fibrillation in his room on Medical. He reports on going SOA for the past 2 years and inability to sleep laying flat. He denies chest pain or pressure. <Kassy Kraus - 02/25/17 15:56> Exam Vital signs: Temperature 97.6 F 02/26/17 11:00 Pulse Rate 71 02/26/17 11:00 Respiratory Rate 20 02/26/17 11:00 Blood Pressure 138/97 H 02/26/17 11:00 Pulse Oximetry 94 02/26/17 11:00 <Thony Diaz - 02/26/17 12:55> Temperature 97.7 F 02/25/17 15:00 Pulse Rate 60 02/25/17 15:00 Respiratory Rate 20 02/25/17 15:00 Blood Pressure 108/68 02/25/17 15:00 Pulse Oximetry 92 02/25/17 15:00 <Kassy Kraus - 02/25/17 15:56> - Constitutional no acute distress, morbidly obese, cooperative <Kassy Kraus 02/25/17 15: 56> - Routine HEENT Exam Head: Present: normocephalic <Kassy Kraus 02/25/17 15:56> ENT: Present: mucous membranes moist <Kassy Kraus 02/25/17 15:56> - Routine Neck Exam Present: JVD. Absent: carotid bruit <Kassy Kraus 02/25/17 15:56> - Routine Chest/Breast/Axilla Exam Chest wall: Absent: tenderness <Kassy Kraus 02/25/17 15:56> - Routine Respiratory Exam Present: rales (bibasilar), diminished air movement. Absent: CTA bilaterally <Kassy Kraus 02/25/17 15:56> - Routine Cardiovascular Exam Present: no murmur, irregular rhythm, JVD <Kassy Kraus 02/25/17 15:56> - Routine Abdominal Exam Present: soft, normoactive bowel sounds <Kassy Karus 02/25/17 15:56> - Routine Extremities Exam Present: edema <Kassy Kraus - 02/25/17 15:56> - Routine Skin Exam Present: intact, dry, warm <Kassy Kraus - 02/25/17 15:56> - Routine Neurological Exam Present: alert, oriented X3 <Kassy rKaus - 02/25/17 15:56> - Routine Psychiatric Exam Present: normal affect, normal thought process <Kassy Kraus - 02/25/17 15: 56> - Additional findings Additional findings: Abnormal Lab Results 02/24/17 02/26/17 02/26/17 04:37 05:03 05:03 WBC 9.5 RBC 5.08 Hgb 13.8 Hct 42.9 MCV 84.4 MCH 27.2 MCHC 32.2 RDW Std Deviation 46.8 Plt Count 242 MPV 10.6 Turbidity < 20 Sodium 147 H Potassium 3.4 L Chloride 99 Carbon Dioxide 33 H Anion Gap 15 BUN 44.0 H Creatinine 0.9 GFR Calculation 86 BUN/Creatinine Ratio 49 H Glucose 104 Calculated Osmolality 293 H Calcium 9.8 Magnesium 2.0 Icterus Index < 2 Triglycerides 227 H Cholesterol 159 LDL Cholesterol, Calc 80.6 VLDL Cholesterol 45.4 H HDL Cholesterol 33 L Cholesterol/HDL Ratio 4.8 Specimen Hemolysis 21 Acetaminophen/Hydrocodone Bitart (Mead 10/325) 1 tab PO Q6H PRN PRN Reason: Pain Last Admin: 02/26/17 06:00 Dose: 1 tab Aspirin (Ecotrin) 81 mg PO DAILY [facility] Last Admin: 02/26/17 08:52 Dose: 81 mg Diltiazem HCl (Cardizem Cd) 480 mg PO DAILY [facility] Diltiazem HCl (Cardizem Cd) 240 mg PO DAILY [facility] Last Admin: 02/26/17 08:54 Dose: 240 mg Fenofibrate (Tricor) 145 mg PO WB [facility] Furosemide (Lasix) 80 mg PO [id number] [facility] Last Admin: 02/26/17 08:44 Dose: 80 mg Losartan Potassium (Cozaar) 100 mg PO DAILY [facility] Last Admin: 02/26/17 08:43 Dose: 100 mg Meloxicam (Mobic) 7.5 mg PO WB [facility] Last Admin: 02/26/17 08:42 Dose: 7.5 mg Metoprolol Tartrate (Lopressor) 100 mg PO BIDWM [facility] Last Admin: 02/26/17 08:42 Dose: 100 mg Pantoprazole Sodium (Protonix Tab) 40 mg PO ACB [facility] Last Admin: 02/26/17 06:01 Dose: 40 mg Polyethyl Glycol/Propylene Glycol (Systane Eye Drops) 1 drop EACH EYE PRN PRN Last Admin: 02/25/17 11:08 Dose: 1 drop Potassium Chloride (K-Dur) 40 meq PO TIDWM [facility] Last Admin: 02/26/17 08:53 Dose: 40 meq Rivaroxaban (Xarelto) 20 mg PO WS [facility] Last Admin: 02/25/17 17:45 Dose: 20 mg Sertraline HCl (Zoloft) 100 mg PO DAILY [facility] Last Admin: 02/26/17 08:44 Dose: 100 mg Sodium Chloride (Iv Flush) 10 - 80 ml IVF PRN PRN PRN Reason: Flushing Last Admin: 02/25/17 21:35 Dose: 10 ml Tramadol HCl (Ultram) 100 mg PO Q6H PRN Last Admin: 02/25/17 21:34 Dose: 100 mg <Kassy Kraus - 02/26/17 11:22> Progress Note-A&P (1) CHF (congestive heart failure) Problem details: diastolic Status: Acute Current Visit: Yes (2) A-fib Status: Acute Current Visit: Yes (3) Morbid (severe) obesity due to excess calories Status: Acute Current Visit: Yes (4) COPD (chronic obstructive pulmonary disease) Status: Acute Current Visit: Yes (5) Hypertensive left ventricular hypertrophy with heart failure Status: Acute Current Visit: Yes <Thony Diaz - 02/26/17 12:55> (1) CHF (congestive heart failure) Problem details: diastolic Status: Acute Assessment and plan: EF 53% on Echo. Continue with gentle diuresis with Lasix 80mg po BID. Patient has LVH and water balance will be difficult to maintain. Current Visit: Yes (2) A-fib Status: Acute Assessment and plan: Stop Amlodipine and increase Cardizem to 480mg daily Current Visit: Yes (3) Morbid (severe) obesity due to excess calories Status: Acute Current Visit: Yes (4) COPD (chronic obstructive pulmonary disease) Status: Acute Current Visit: Yes (5) Hypertensive left ventricular hypertrophy with heart failure Status: Acute Assessment and plan: EF 53% on Echo. Continue with gentle diuresis with Lasix 80mg po BID. Patient has LVH and water balance will be difficult to maintain. Current Visit: Yes <Kassy Kraus - 02/26/17 11:21> - Time Spent With Patient Total time spent is greater than 50% in coordination of care (as documented) at patient's floor/unit and/or counseling patient: <CandidajimrajendraThony - 02/26/17 12:55> Total time spent is greater than 50% in coordination of care (as documented) at patient's floor/unit and/or counseling patient: <Kassy Kraus - 02/25/17 15:56> less than 15 minutes <Kassy Kraus - 02/26/17 11:22> - Attestation Attestation Narrative: Recommendation After examining the patient I agree with the above assessment. I am involved in the formulation of the patient's plan of care. <Thony Diaz - 02/26/17 12:55> Sepsis Assessment - Evaluation Sepsis screening result: No Definite Risk <Kassy Kraus - 02/25/17 15:56> Hospital Course Summary Disclaimer: The visit summary below is not to be considered part of the above Progress Note. <Thony Diaz - 02/26/17 12:55> The visit summary below is not to be considered part of the above Progress Note. <Kassy Kraus - 02/25/17 15:56> Hospital Course: Cardizem gtt overnight. Rate controlled although remains in Afib. Drip stopped and po started. Therapeutic lovenox stopped this morning and Xarelto started. Vessel Crew Member and sodium rising. Losartan/HCTZ stopped. Will monitor blood pressure over night. Continue diuresis. Required oxygen overnight to keep sats >90%. Overnight pulse ox to assess for sleep apnea. RCAT for COPD. Sating >90% on RA while awake. Echo pending. Possibly discharge in the morning. 02/25/17 Diastolic CHF:EF 53% on Echo. Continue with gentle diuresis with Lasix 80mg po BID. Patient has LVH and water balance will be difficult to maintain. AFib:Stop Amlodipine and increase Cardizem to 480mg daily <Kassy Kraus - 02/26/17 11:22>
--- NOTE | 2017-02-25 16:13 | Echocardiogram ---
DATE OF PROCEDURE February 23, 2017 This is a two-dimensional echo with spectral Doppler, color-flow and M-mode. It was obtained in a patient with congestive heart failure. Left atrium is dilated. Left ventricle end-diastolic dimension is normal. Left ventricle wall thickness is severely increased. LV systolic function is at the lower limits of normal with ejection fraction of about 50-55%. Right atrium is dilated. Right ventricle is normal. Aortic root dimension is normal. Mitral valve is morphologically normal with moderate mitral regurgitation. Aortic valve is a trileaflet structure with no stenosis. Mild aortic insufficiency is present. Tricuspid valve shows mild tricuspid regurgitation with moderate pulmonary hypertension with estimated pulmonary artery systolic pressure of 46. Pulmonary valve shows mild pulmonary insufficiency. There is no pericardial effusion. IMPRESSION 1. LV function at the lower limits of normal with ejection fraction of about 50 -55%. 2. Severe concentric left ventricular hypertrophy with no obstruction. 3. Biatrial dilation. 4. Moderate mitral regurgitation. 5. Mild aortic insufficiency. 6. Mild tricuspid regurgitation with moderate pulmonary hypertension with estimated pulmonary artery systolic pressure of 46. 7. Mild pulmonary insufficiency. MTDD
[2017-02-25] MEDS: RIVAROXABAN 20 MG TABLET PO SCH (17:45)
[2017-02-25] MEDS: FUROSEMIDE 80 MG TABLET PO SCH (17:45)
[2017-02-25] MEDS: LOSARTAN 100 MG TABLET PO SCH (17:46)
[2017-02-25] MEDS: SALINE FLUSH 10ml SYRINGE IVF PRN (21:35)
[2017-02-26] MEDS: HYDROCODONE/APAP 10 MG/325 MG TABLET PO PRN ×2 (06:00→16:39)
[2017-02-26] MEDS: PANTOPRAZOLE 40 MG TABLET PO SCH (06:01)
[2017-02-26] MEDS: MELOXICAM 15 MG PO SCH (08:42)
[2017-02-26] MEDS: LOSARTAN 100 MG TABLET PO SCH (08:43)
[2017-02-26] MEDS: FENOFIBRATE 145 MG PO SCH (08:44)
[2017-02-26] MEDS: SERTRALINE 100 MG PO SCH (08:44)
[2017-02-26] MEDS: FUROSEMIDE 80 MG TABLET PO SCH (08:44)
[2017-02-26] MEDS: ASPIRIN *EC* 81 MG TABLET PO SCH (08:52)
[2017-02-26] MEDS ORDERED: POM METOPROLOL TARTRATE 100mg TABLET PO SCH (09:00)
[2017-02-26] MEDS: SALINE FLUSH 10ml SYRINGE IVF PRN (11:44)
[2017-02-26] MEDS ORDERED: SALINE FLUSH 10ml SYRINGE ONE (13:18)
[2017-02-26] MEDS ORDERED: FLECAINIDE 100 MG TABLET PO ONE (14:38)
[2017-02-26] MEDS ORDERED: MIDAZOLAM 2mg/2ml INJECTION IVP ONE (15:32)
[2017-02-26] MEDS ORDERED: FentaNYL 100 MCG/2 ML INJECTION IVP ONE (15:32)
--- NOTE | 2017-02-26 16:10 | Transesophageal Echocardiogram ---
DATE OF PROCEDURE February 26, 2017 INDICATIONS The patient is a pleasant 61-year-old gentleman who was admitted with symptomatic atrial fibrillation and therefore we tried to control the rate. However, the patient has had a few pauses and we had a hard time controlling the rate and therefore we decided to proceed with LORRAINE and cardioversion. INFORMED CONSENT Informed consent was obtained after explaining the procedure and the potential risks to the patient who agreed to proceed with the procedure. PROCEDURE 1. Transesophageal echocardiogram. 2. DC cardioversion. TECHNIQUE Conscious sedation was performed using Versed and fentanyl. Cetacaine spray was used for pharyngeal anesthesia. Probe was advanced into the esophagus and stomach and images were obtained in multiple planes. Left atrium is mildly dilated. Left ventricle end-diastolic dimension is normal. Left ventricle wall thickness is normal. LV systolic function is at the lower limits of normal with ejection fraction of about 50-55%. Right atrium is normal. Right ventricle is normal. Aortic root dimension is normal. There is no thrombus in left atrium, left atrial appendage or left ventricle. Mitral valve is morphologically normal with mild to moderate mitral regurgitation. Aortic valve is a trileaflet structure with no stenosis. Mild aortic insufficiency is present. Tricuspid valve shows mild tricuspid regurgitation. Pulmonary valve appears to be normal. Agitated saline was injected which showed no evidence of [id number] shunt. Descending thoracic aorta appears to show mild atherosclerosis. IMPRESSION 1. LV function at the lower limits of normal with ejection fraction of about 50 -55%. 2. No intracardiac thrombus or mass. 3. Mild left atrial dilation. 4. Mild to moderate mitral regurgitation. 5. Mild aortic insufficiency. 6. Mild tricuspid regurgitation. 7. Mild atherosclerosis of the descending thoracic aorta. After reviewing the images we decided to proceed with cardioversion. Anterior- posterior Zoll pads were applied. 360 joules of energy were delivered in synchronized manner and patient converted from atrial fibrillation to sinus rhythm. He tolerated the procedure well with no complications. IMPRESSION 1. Successful DC cardioversion of atrial fib fibrillation to sinus rhythm. PLAN Will keep him on anticoagulation and start him on antiarrhythmics to maintain sinus. MTDD
[2017-02-26] MEDS: RIVAROXABAN 20 MG TABLET PO SCH (17:47)
[2017-02-26] MEDS: HYDRALAZINE 10 MG TABLET PO SCH (17:47)
[2017-02-26] MEDS: FLECAINIDE 50 MG TABLET PO SCH (21:37)
[2017-02-27] MEDS: HYDROCODONE/APAP 10 MG/325 MG TABLET PO PRN ×3 (00:54→16:57)
[2017-02-27] MEDS: TRAMADOL 50 MG TABLET PO PRN ×2 (03:49→21:13)
[2017-02-27] MEDS: PANTOPRAZOLE 40 MG TABLET PO SCH (05:40)
[2017-02-27] MEDS: FUROSEMIDE 80 MG TABLET PO SCH (09:02)
[2017-02-27] MEDS: FLECAINIDE 50 MG TABLET PO SCH ×2 (09:03→21:14)
[2017-02-27] MEDS: MELOXICAM 15 MG PO SCH (09:04)
[2017-02-27] MEDS: HYDRALAZINE 10 MG TABLET PO SCH ×3 (09:04→17:54)
[2017-02-27] MEDS: FENOFIBRATE 145 MG PO SCH (09:04)
[2017-02-27] MEDS: LOSARTAN 100 MG TABLET PO SCH (09:05)
[2017-02-27] MEDS: SERTRALINE 100 MG PO SCH (09:07)
--- NOTE | 2017-02-27 11:00 | Cardiology Progress Note ---
Subjective Principal diagnosis: CHF, AFIB <Kassy Kraus - 02/27/17 11:10> Interval history: Diego is seen in follow up for CHF and Atrial fibrillation in his room on Medical. He is sitting on the bedside having breakfast, his is at the bedside. He denies chest pain or pressure, dyspnea, dizziness or nausea. <Kassy Kraus - 02/28/17 09:55> Exam Vital signs: Temperature 97.7 F 03/01/17 12:07 Pulse Rate 68 03/01/17 12:07 Respiratory Rate 20 03/01/17 12:07 Blood Pressure 104/71 03/01/17 12:07 Pulse Oximetry 92 03/01/17 12:07 <CandidamicaThony - 03/05/17 08:08> Temperature 97.7 F 02/27/17 08:00 Pulse Rate 64 02/27/17 08:00 Respiratory Rate 18 02/27/17 08:00 Blood Pressure 144/91 H 02/27/17 08:00 Pulse Oximetry 91 02/27/17 08:00 <Nayana,Kassy - 02/27/17 11:10> - Constitutional no acute distress, morbidly obese, cooperative <Kassy Kraus 02/27/17 11: 10> - Routine HEENT Exam Head: Present: normocephalic <NayanaKassy Nicolas 02/27/17 11:10> ENT: Present: mucous membranes moist <NayanaKassy Nicolas 02/27/17 11:10> - Routine Neck Exam Absent: JVD, carotid bruit <Nayana,Kassy Nicolas 02/27/17 11:10> - Routine Chest/Breast/Axilla Exam Chest wall: Absent: tenderness <NayanaKassy Nicolas 02/27/17 11:10> - Routine Respiratory Exam Present: CTA bilaterally. Absent: rales, wheezes <NayanaKassy gaming Maria Isabel 02/27/17 11:10> - Routine Cardiovascular Exam Present: RRR, no murmur. Absent: JVD <NayanaKassy Nicolas 02/27/17 11:10> - Routine Abdominal Exam Present: soft, normoactive bowel sounds <Kassy Kraus Maria Isabel 02/27/17 11:10> - Routine Extremities Exam Present: no edema <Kassy Kraus - 02/27/17 11:10> - Routine Skin Exam Present: intact, dry, warm <Kassy Kraus - 02/27/17 11:10> - Routine Neurological Exam Present: alert, oriented X3 <Kassy Kraus - 02/27/17 11:10> - Routine Psychiatric Exam Present: normal affect, normal thought process <Kassy Kraus - 02/27/17 11: 10> - Additional findings Additional findings: Laboratory Results - last 48 hr 02/27/17 02/27/17 05:21 05:21 WBC 10.2 RBC 5.43 Hgb 14.6 Hct 45.4 MCV 83.6 MCH 26.9 MCHC 32.2 RDW Std Deviation 46.7 Plt Count 280 MPV 10.7 Turbidity < 20 Sodium 146 H Potassium 3.4 L Chloride 99 Carbon Dioxide 33 H Anion Gap 14 BUN 44.0 H Creatinine 1.0 GFR Calculation 76 BUN/Creatinine Ratio 44 H Glucose 106 Calculated Osmolality 292 H Calcium 10.2 Magnesium 2.1 Icterus Index < 2 Specimen Hemolysis < 15 Acetaminophen/Hydrocodone Bitart ([place] 10/325) 1 tab PO Q6H PRN PRN Reason: Pain Last Admin: 02/28/17 05:30 Dose: 1 tab Diltiazem HCl (Cardizem Cd) 480 mg PO DAILY [facility] Fenofibrate (Tricor) 145 mg PO WB [facility] Last Admin: 02/28/17 09:25 Dose: 145 mg Flecainide Acetate (Tambocor) 50 mg PO Q12HR [facility] Last Admin: 02/28/17 09:23 Dose: 50 mg Furosemide (Lasix) 80 mg PO DAILY [facility] Last Admin: 02/28/17 09:23 Dose: 80 mg Hydralazine HCl (Apresoline) 10 mg PO TIDWM [facility] Last Admin: 02/28/17 09:23 Dose: 10 mg Losartan Potassium (Cozaar) 100 mg PO DAILY [facility] Last Admin: 02/28/17 09:26 Dose: 100 mg Meloxicam (Mobic) 7.5 mg PO WB [facility] Last Admin: 02/28/17 09:25 Dose: 7.5 mg Metoprolol Tartrate (Lopressor) 100 mg PO BIDWM [facility] Last Admin: 02/28/17 09:24 Dose: 100 mg Nifedipine (Procardia Xl) 60 mg PO DAILY [facility] Last Admin: 02/28/17 09:23 Dose: 60 mg Pantoprazole Sodium (Protonix Tab) 40 mg PO ACB [facility] Last Admin: 02/28/17 05:31 Dose: 40 mg Polyethyl Glycol/Propylene Glycol (Systane Eye Drops) 1 drop EACH EYE PRN PRN Last Admin: 02/25/17 11:08 Dose: 1 drop Potassium Chloride (K-Dur) 40 meq PO TIDWM [facility] Last Admin: 02/28/17 09:23 Dose: 40 meq Rivaroxaban (Xarelto) 20 mg PO WS [facility] Last Admin: 02/27/17 17:55 Dose: 20 mg Sertraline HCl (Zoloft) 100 mg PO DAILY [facility] Last Admin: 02/28/17 09:27 Dose: 100 mg Sodium Chloride (Iv Flush) 10 - 80 ml IVF PRN PRN PRN Reason: Flushing Last Admin: 02/28/17 09:22 Dose: 10 ml Tramadol HCl (Ultram) 100 mg PO Q6H PRN Last Admin: 02/28/17 09:23 Dose: 100 mg <Kassy Kraus - 02/28/17 14:18> Progress Note-A&P - Time Spent With Patient Total time spent is greater than 50% in coordination of care (as documented) at patient's floor/unit and/or counseling patient: <Thony Diaz - 03/05/17 08:08> Total time spent is greater than 50% in coordination of care (as documented) at patient's floor/unit and/or counseling patient: <Kassy Kraus - 02/27/17 11:10> less than 15 minutes <Kassy Kraus - 02/28/17 09:55> - Attestation Attestation Narrative: Recommendation After examining the patient I agree with the above assessment. I am involved in the formulation of the patient's plan of care. <Thony Diaz - 03/05/17 08:08> (1) CHF (congestive heart failure) Problem details: diastolic Status: Acute (2) A-fib Status: Resolved (3) Morbid (severe) obesity due to excess calories Status: Acute (4) COPD (chronic obstructive pulmonary disease) Status: Acute (5) Hypertensive left ventricular hypertrophy with heart failure Status: Acute (6) Essential (primary) hypertension Status: Acute (7) Hypoxia Status: Acute <Thony Diaz - 03/05/17 08:08> (1) Hypertensive left ventricular hypertrophy with heart failure Status: Acute Assessment and plan: EF 53% on Echo. Continue with gentle diuresis with Lasix 80mg po daily. Patient has LVH and water balance will be difficult to maintain. (2) CHF (congestive heart failure) Problem details: diastolic Status: Acute Assessment and plan: EF 53% on Echo. Continue with gentle diuresis with Lasix 80mg po daily. Patient has LVH and water balance will be difficult to maintain. (3) A-fib Status: Acute Assessment and plan: DCCV following LORRAINE yesterday then given Flecainide 100mg, followed by 50mg BID. Continue Xarelto for stroke prevention, stop Aspirin. (4) Essential (primary) hypertension Status: Acute Assessment and plan: Suboptimal control, added Hydralazine 10mg TID yesterday. Today, change Cardizem to Nifedipine 60mg daily. (5) Morbid (severe) obesity due to excess calories Status: Acute (6) COPD (chronic obstructive pulmonary disease) Status: Acute <Kassy Kraus - 02/28/17 14:17> Sepsis Assessment - Evaluation Sepsis screening result: No Definite Risk <Kassy Kraus - 02/27/17 11:10> Hospital Course Summary Disclaimer: The visit summary below is not to be considered part of the above Progress Note. <Thony Diaz - 03/05/17 08:08> The visit summary below is not to be considered part of the above Progress Note. <Kassy Krasu - 02/27/17 11:10> Hospital Course: Cardizem gtt overnight. Rate controlled although remains in Afib. Drip stopped and po started. Therapeutic lovenox stopped this morning and Xarelto started. [employer] and sodium rising. Losartan/HCTZ stopped. Will monitor blood pressure over night. Continue diuresis. Required oxygen overnight to keep sats >90%. Overnight pulse ox to assess for sleep apnea. RCAT for COPD. Sating >90% on RA while awake. Echo pending. Possibly discharge in the morning. 02/25/17 Diastolic CHF:EF 53% on Echo. Continue with gentle diuresis with Lasix 80mg po BID. Patient has LVH and water balance will be difficult to maintain. AFib:Stop Amlodipine and increase Cardizem to 480mg daily 02/26/17 LORRAINE/ DCCV: see report 02/27/17 11:02 AFIB: DCCV following LORRAINE yesterday then given Flecainide 100mg, followed by 50mg BID. Cardizem continued at 240mg due to bradycardia during the night on 480mg dose. Continue Xarelto for stroke prevention, stop Aspirin. CHF: Lasix 80mg po daily. HTN: Suboptimal control, added Hydralazine 10mg TID yesterday. Today, change Cardizem to Nifedipine 60mg daily <Kassy Kraus - 02/28/17 09:55>
[2017-02-27] MEDS: RIVAROXABAN 20 MG TABLET PO SCH (17:55)
[2017-02-28] MEDS: HYDROCODONE/APAP 10 MG/325 MG TABLET PO PRN ×2 (05:30→12:56)
[2017-02-28] MEDS: PANTOPRAZOLE 40 MG TABLET PO SCH (05:31)
[2017-02-28] MEDS: SALINE FLUSH 10ml SYRINGE IVF PRN (09:22)
[2017-02-28] MEDS: FLECAINIDE 50 MG TABLET PO SCH ×2 (09:23→21:09)
[2017-02-28] MEDS: HYDRALAZINE 10 MG TABLET PO SCH ×3 (09:23→17:52)
[2017-02-28] MEDS: TRAMADOL 50 MG TABLET PO PRN ×2 (09:23→17:59)
[2017-02-28] MEDS: FUROSEMIDE 80 MG TABLET PO SCH ×2 (09:23→17:52)
[2017-02-28] MEDS: FENOFIBRATE 145 MG PO SCH (09:25)
[2017-02-28] MEDS: MELOXICAM 15 MG PO SCH (09:25)
[2017-02-28] MEDS: LOSARTAN 100 MG TABLET PO SCH (09:26)
[2017-02-28] MEDS: SERTRALINE 100 MG PO SCH (09:27)
--- NOTE | 2017-02-28 11:27 | XRay Report ---
Indication: hypoxia, elevated WBC PROCEDURE: XR chest 1V: Encounter: Initial Comparison: February 23, 2017 Findings: Increasing airspace disease in the lower lobes. Small pleural effusions. Upper lung trinh are clear. No pneumothorax. Heart size and mediastinal contours are stable. Pulmonary vascularity is more congested and prominent. Impression: Development of mild to moderate pulmonary edema. Superimposed lower lobe pneumonia or aspiration is possible. .
--- NOTE | 2017-02-28 14:21 | Cardiology Progress Note ---
Subjective Principal diagnosis: CHF, AFIB <Kassy Kraus 02/28/17 14:27> Interval history: Diego is seen in follow up for CHF and Atrial fibrillation. He is up in his room and reports SOA with activity. He denies chest pain or pressure, dizziness or nausea. <Kassy Kraus 02/28/17 14:27> Exam Vital signs: Temperature 97.7 F 03/01/17 12:07 Pulse Rate 68 03/01/17 12:07 Respiratory Rate 20 03/01/17 12:07 Blood Pressure 104/71 03/01/17 12:07 Pulse Oximetry 92 03/01/17 12:07 <Thony Diaz - 03/06/17 08:01> Temperature 97.1 F 02/28/17 07:40 Pulse Rate 74 02/28/17 13:38 Respiratory Rate 02/28/17 12:58 Blood Pressure 128/80 02/28/17 12:58 Pulse Oximetry 85 L 02/28/17 13:38 <Kassy Kraus 02/28/17 14:27> - Constitutional mild distress, morbidly obese, cooperative <Kassy Kraus 02/28/17 14:27> - Routine HEENT Exam Head: Present: normocephalic <Kassy Kraus 02/28/17 14:27> ENT: Present: mucous membranes moist <Kassy Kraus 02/28/17 14:27> - Routine Neck Exam Absent: JVD, carotid bruit <Kassy Kraus 02/28/17 14:27> - Routine Chest/Breast/Axilla Exam Chest wall: Absent: tenderness <Kassy Kraus 02/28/17 14:27> - Routine Respiratory Exam Present: crackles (fine). Absent: CTA bilaterally, rales, wheezes <Kassy Kraus 02/28/17 14:27> - Routine Cardiovascular Exam Present: RRR, no murmur, bradycardia. Absent: JVD <Kassy Kraus 02/28/17 14:27> - Routine Abdominal Exam Present: soft, normoactive bowel sounds <Kassy Kraus 02/28/17 14:27> - Routine Extremities Exam Present: no edema <Kassy Kraus - 02/28/17 14:27> - Routine Skin Exam Present: intact, dry, warm <Kassy Kraus - 02/28/17 14:27> - Routine Neurological Exam Present: alert, oriented X3 <Kassy Kraus - 02/28/17 14:27> - Routine Psychiatric Exam Present: normal affect, normal thought process <Kassy Kraus - 02/28/17 14: 27> - Additional findings Additional findings: Abnormal Lab Results 02/28/17 02/28/17 10:07 10:07 WBC 13.0 H RBC 5.46 Hgb 14.8 Hct 45.5 MCV 83.3 MCH 27.1 MCHC 32.5 RDW Std Deviation 46.2 Plt Count 281 MPV 10.7 Turbidity < 20 Sodium 147 H Potassium 4.1 D Chloride 102 Carbon Dioxide 31 H Anion Gap 14 BUN 40.0 H Creatinine 1.0 GFR Calculation 76 BUN/Creatinine Ratio 40 H Glucose 127 H Calculated Osmolality 294 H Calcium 10.4 H Icterus Index < 2 Specimen Hemolysis < 15 Acetaminophen/Hydrocodone Bitart ([place] 10/325) 1 tab PO Q6H PRN PRN Reason: Pain Last Admin: 02/28/17 12:56 Dose: 1 tab Diltiazem HCl (Cardizem Cd) 480 mg PO DAILY [facility] Fenofibrate (Tricor) 145 mg PO WB [facility] Last Admin: 02/28/17 09:25 Dose: 145 mg Flecainide Acetate (Tambocor) 50 mg PO Q12HR [facility] Last Admin: 02/28/17 09:23 Dose: 50 mg Furosemide (Lasix) 80 mg PO [id number] [facility] Hydralazine HCl (Apresoline) 10 mg PO TIDWM [facility] Last Admin: 02/28/17 12:56 Dose: 10 mg Losartan Potassium (Cozaar) 100 mg PO DAILY [facility] Last Admin: 02/28/17 09:26 Dose: 100 mg Meloxicam (Mobic) 7.5 mg PO WB [facility] Last Admin: 02/28/17 09:25 Dose: 7.5 mg Metoprolol Tartrate (Lopressor) 100 mg PO BIDWM [facility] Last Admin: 02/28/17 09:24 Dose: 100 mg Nifedipine (Procardia Xl) 60 mg PO DAILY [facility] Last Admin: 02/28/17 09:23 Dose: 60 mg Pantoprazole Sodium (Protonix Tab) 40 mg PO ACB [facility] Last Admin: 02/28/17 05:31 Dose: 40 mg Polyethyl Glycol/Propylene Glycol (Systane Eye Drops) 1 drop EACH EYE PRN PRN Last Admin: 02/25/17 11:08 Dose: 1 drop Potassium Chloride (K-Dur) 40 meq PO TIDWM [facility]PL[facility] Last Admin: 02/28/17 12:56 Dose: 40 meq Rivaroxaban (Xarelto) 20 mg PO WS [facility]PL[facility] Last Admin: 02/27/17 17:55 Dose: 20 mg Sertraline HCl (Zoloft) 100 mg PO DAILY [facility] Last Admin: 02/28/17 09:27 Dose: 100 mg Sodium Chloride (Iv Flush) 10 - 80 ml IVF PRN PRN PRN Reason: Flushing Last Admin: 02/28/17 09:22 Dose: 10 ml Tramadol HCl (Ultram) 100 mg PO Q6H PRN Last Admin: 02/28/17 09:23 Dose: 100 mg Date of Exam: 02/28/17 Ordering Provider: Kassy Kraus APRN Type of Exam(s): XR chest 1V Reason for Exam(s): hypoxia, elevated WBC Indication: hypoxia, elevated WBC PROCEDURE: XR chest 1V: Encounter: Initial Comparison: February 23, 2017 Findings: Increasing airspace disease in the lower lobes. Small pleural effusions. Upper lung trinh are clear. No pneumothorax. Heart size and mediastinal contours are stable. Pulmonary vascularity is more congested and prominent. Impression: Development of mild to moderate pulmonary edema. Superimposed lower lobe pneumonia or aspiration is possible. EKG: Sinus Bradycardia, <Kassy Kraus - 02/28/17 14:27> Assessment and Plan - Assessment and Plan (1) CHF (congestive heart failure) Problem details: diastolic Status: Acute (2) A-fib Status: Resolved (3) Morbid (severe) obesity due to excess calories Status: Acute (4) COPD (chronic obstructive pulmonary disease) Status: Acute (5) Hypertensive left ventricular hypertrophy with heart failure Status: Acute (6) Essential (primary) hypertension Status: Acute (7) Hypoxia Status: Acute <Thony Diaz - 03/06/17 08:01> (1) Hypertensive left ventricular hypertrophy with heart failure (2) CHF (congestive heart failure) (3) A-fib (4) Essential (primary) hypertension (5) Morbid (severe) obesity due to excess calories (6) COPD (chronic obstructive pulmonary disease) (7) Hypoxia <Kassy Kraus - 03/01/17 12:41> - Attestation Attestation Narrative: 03/06/17 08:01 Recommendation After examining the patient I agree with the above assessment. I am involved in the formulation of the patient's plan of care. <Jamal Diazsein - 03/06/17 08:01> Sepsis Assessment - Evaluation Sepsis screening result: No Definite Risk <Kassy Kraus - 02/28/17 14:27> Hospital Course Summary Disclaimer: The visit summary below is not to be considered part of the above Progress Note. <Jez Diazin - 03/06/17 08:01> The visit summary below is not to be considered part of the above Progress Note. <Kassy Kraus - 02/28/17 14:27> Hospital Course: Cardizem gtt overnight. Rate controlled although remains in Afib. Drip stopped and po started. Therapeutic lovenox stopped this morning and Xarelto started. [employer] and sodium rising. Losartan/HCTZ stopped. Will monitor blood pressure over night. Continue diuresis. Required oxygen overnight to keep sats >90%. Overnight pulse ox to assess for sleep apnea. RCAT for COPD. Sating >90% on RA while awake. Echo pending. Possibly discharge in the morning. 02/25/17 Diastolic CHF:EF 53% on Echo. Continue with gentle diuresis with Lasix 80mg po BID. Patient has LVH and water balance will be difficult to maintain. AFib:Stop Amlodipine and increase Cardizem to 480mg daily 02/26/17 LORRAINE/ DCCV: see report 02/27/17 11:02 AFIB: DCCV following LORRAINE yesterday then given Flecainide 100mg, followed by 50mg BID. Cardizem continued at 240mg due to bradycardia during the night on 480mg dose. Continue Xarelto for stroke prevention, stop Aspirin. CHF: Lasix 80mg po daily. HTN: Suboptimal control, added Hydralazine 10mg TID yesterday. Today, change Cardizem to Nifedipine 60mg daily 02/28/17 14:24 Worsening dyspnea with hypoxia, Chest x-ray with pulmonary edema. Increase Lasix to 80mg BID and continue to monitor. Exercise oximetry to assess for home O2 needs. BP: better control on Nifedipine <Kassy Kraus - 03/01/17 12:42>
[2017-02-28] MEDS: RIVAROXABAN 20 MG TABLET PO SCH (17:53)
[2017-03-01] MEDS: HYDROCODONE/APAP 10 MG/325 MG TABLET PO PRN ×2 (00:42→09:48)
[2017-03-01] MEDS: PANTOPRAZOLE 40 MG TABLET PO SCH (06:00)
[2017-03-01] MEDS: TRAMADOL 50 MG TABLET PO PRN ×2 (06:01→12:49)
[2017-03-01 07:17] VITALS: RESP 20; TEMP 97.7
[2017-03-01] MEDS: LOSARTAN 100 MG TABLET PO SCH (08:18)
[2017-03-01] MEDS: FUROSEMIDE 80 MG TABLET PO SCH (08:18)
[2017-03-01] MEDS: HYDRALAZINE 10 MG TABLET PO SCH ×2 (08:18→12:49)
[2017-03-01] MEDS: MELOXICAM 15 MG PO SCH (08:19)
[2017-03-01] MEDS: FLECAINIDE 50 MG TABLET PO SCH (08:19)
[2017-03-01] MEDS: SERTRALINE 100 MG PO SCH (08:20)
[2017-03-01] MEDS: FENOFIBRATE 145 MG PO SCH (08:20)
[2017-03-01] MEDS: SALINE FLUSH 10ml SYRINGE IVF PRN (08:20)
[2017-03-01 12:08] VITALS: BP 104/71; PULSE 68; O2SAT 92
--- NOTE | 2017-03-01 12:19 | Discharge Summary ---
<Kassy Kraus - Last Filed: 03/01/17 12:15> Discharge Information Date of admission: 02/26/17 09:19 Anticipated date of discharge: 03/01/17 Attending Physician: Thony Diaz MD Primary care physician: Diego Miller MD - Discharge Diagnosis (1) Hypertensive left ventricular hypertrophy with heart failure Status: Acute (2) CHF (congestive heart failure) Status: Acute Discharge Diagnosis: Continue Lasix 80mg BID and KCl 20meq TID (3) A-fib Status: Resolved Discharge Diagnosis: Flecainide 50mg BID, Metoprolol 100mg BID and Xarelto 20mg daily (4) Essential (primary) hypertension Status: Acute Discharge Diagnosis: Losartan 100mg daily, Nifedipine 60mg daily and Hydralazine 10mg TID (5) Morbid (severe) obesity due to excess calories Status: Acute (6) COPD (chronic obstructive pulmonary disease) Status: Acute (7) Hypoxia Status: Acute Discharge Diagnosis: Home with O2: 2L at reat, 5L with exercise - Procedures Procedures: Date of Exam: 02/26/17 Type of Exam(s): US hany w/ doppler DATE OF PROCEDURE February 26, 2017 INDICATIONS The patient is a pleasant 61-year-old gentleman who was admitted with symptomatic atrial fibrillation and therefore we tried to control the rate. However, the patient has had a few pauses and we had a hard time controlling the rate and therefore we decided to proceed with HANY and cardioversion. INFORMED CONSENT Informed consent was obtained after explaining the procedure and the potential risks to the patient who agreed to proceed with the procedure. PROCEDURE 1. Transesophageal echocardiogram. 2. DC cardioversion. TECHNIQUE Conscious sedation was performed using Versed and fentanyl. Cetacaine spray was used for pharyngeal anesthesia. Probe was advanced into the esophagus and stomach and images were obtained in multiple planes. Left atrium is mildly dilated. Left ventricle end-diastolic dimension is normal. Left ventricle wall thickness is normal. LV systolic function is at the lower limits of normal with ejection fraction of about 50-55%. Right atrium is normal. Right ventricle is normal. Aortic root dimension is normal. There is no thrombus in left atrium, left atrial appendage or left ventricle. Mitral valve is morphologically normal with mild to moderate mitral regurgitation. Aortic valve is a trileaflet structure with no stenosis. Mild aortic insufficiency is present. Tricuspid valve shows mild tricuspid regurgitation. Pulmonary valve appears to be normal. Agitated saline was injected which showed no evidence of [id number] shunt. Descending thoracic aorta appears to show mild atherosclerosis. IMPRESSION 1. LV function at the lower limits of normal with ejection fraction of about 50 -55%. 2. No intracardiac thrombus or mass. 3. Mild left atrial dilation. 4. Mild to moderate mitral regurgitation. 5. Mild aortic insufficiency. 6. Mild tricuspid regurgitation. 7. Mild atherosclerosis of the descending thoracic aorta. After reviewing the images we decided to proceed with cardioversion. Anterior- posterior Zoll pads were applied. 360 joules of energy were delivered in synchronized manner and patient converted from atrial fibrillation to sinus rhythm. He tolerated the procedure well with no complications. IMPRESSION 1. Successful DC cardioversion of atrial fib fibrillation to sinus rhythm. PLAN Will keep him on anticoagulation and start him on antiarrhythmics to maintain sinus. - Laboratory Labs: 03/01/17 05:17 03/01/17 05:17 02/28/17 03/01/17 10:07 05:17 WBC 13.0 H 10.2 RBC 5.46 5.26 Hgb 14.8 14.3 Hct 45.5 44.3 MCV 83.3 84.2 MCH 27.1 27.2 MCHC 32.5 32.3 RDW Std Deviation 46.2 46.5 Plt Count 281 257 MPV 10.7 10.7 Laboratory Results - last 48 hr 02/28/17 02/28/17 03/01/17 10:07 10:07 05:17 WBC 13.0 H 10.2 RBC 5.46 5.26 Hgb 14.8 14.3 Hct 45.5 44.3 MCV 83.3 84.2 MCH 27.1 27.2 MCHC 32.5 32.3 RDW Std Deviation 46.2 46.5 Plt Count 281 257 MPV 10.7 10.7 Turbidity < 20 Sodium 147 H Potassium 4.1 D Chloride 102 Carbon Dioxide 31 H Anion Gap 14 BUN 40.0 H Creatinine 1.0 GFR Calculation 76 BUN/Creatinine Ratio 40 H Glucose 127 H Calculated Osmolality 294 H Calcium 10.4 H Magnesium Icterus Index < 2 Specimen Hemolysis < 15 03/01/17 05:17 WBC RBC Hgb Hct MCV MCH MCHC RDW Std Deviation Plt Count MPV Turbidity < 20 Sodium 146 H Potassium 3.9 Chloride 102 Carbon Dioxide 29 Anion Gap 15 BUN 40.0 H Creatinine 0.9 GFR Calculation 86 BUN/Creatinine Ratio 44 H Glucose 96 Calculated Osmolality 291 H Calcium 9.8 Magnesium 2.1 Icterus Index < 2 Specimen Hemolysis 46 H - Radiology Radiology: Date of Exam: 02/23/17 Type of Exam(s): US echo doppler complete DATE OF PROCEDURE February 23, 2017 This is a two-dimensional echo with spectral Doppler, color-flow and M-mode. It was obtained in a patient with congestive heart failure. Left atrium is dilated. Left ventricle end-diastolic dimension is normal. Left ventricle wall thickness is severely increased. LV systolic function is at the lower limits of normal with ejection fraction of about 50-55%. Right atrium is dilated. Right ventricle is normal. Aortic root dimension is normal. Mitral valve is morphologically normal with moderate mitral regurgitation. Aortic valve is a trileaflet structure with no stenosis. Mild aortic insufficiency is present. Tricuspid valve shows mild tricuspid regurgitation with moderate pulmonary hypertension with estimated pulmonary artery systolic pressure of 46. Pulmonary valve shows mild pulmonary insufficiency. There is no pericardial effusion. IMPRESSION 1. LV function at the lower limits of normal with ejection fraction of about 50 -55%. 2. Severe concentric left ventricular hypertrophy with no obstruction. 3. Biatrial dilation. 4. Moderate mitral regurgitation. 5. Mild aortic insufficiency. 6. Mild tricuspid regurgitation with moderate pulmonary hypertension with estimated pulmonary artery systolic pressure of 46. 7. Mild pulmonary insufficiency. Date of Exam: 02/23/17 Ordering Provider: Boby Grimaldo DO Type of Exam(s): XR chest 2V Reason for Exam(s): Dyspnea INDICATION: Dyspnea PROCEDURE: CHEST 2-VIEWS UPRIGHT (PA & LAT) Encounter: Initial COMPARISON: None FINDINGS: There is suggestion of fine hazy opacity in the lower lung trinh, some of which is probably due to overlapping soft tissues and body habitus. No lobar consolidation. There is no pleural effusion or pneumothorax. Cardiac silhouette is moderately enlarged. Mediastinal contours and pulmonary vascularity are normal. Degenerative change in the spine. IMPRESSION: Possible lower lobe opacities could represent atypical or viral pneumonia. Date of Exam: 02/28/17 Ordering Provider: Kassy Kraus APRN Type of Exam(s): XR chest 1V Reason for Exam(s): hypoxia, elevated WBC Indication: hypoxia, elevated WBC PROCEDURE: XR chest 1V: Encounter: Initial Comparison: February 23, 2017 Findings: Increasing airspace disease in the lower lobes. Small pleural effusions. Upper lung trinh are clear. No pneumothorax. Heart size and mediastinal contours are stable. Pulmonary vascularity is more congested and prominent. Impression: Development of mild to moderate pulmonary edema. Superimposed lower lobe pneumonia or aspiration is possible. History of Present Illness HPI: Patient is a 61yo morbidly obese male with a history of tobacco abuse, COPD, and HTN that presented to the ER with complaints of increased shortness of air. Atrial fibrillation at an accelerated rate was identified on the monitor. BNP> 1900. Denies history of CHF or afib. Condition improved with IV cardizem push, duo neb, and IV lasix. Admits to not breathing well at night. Family history of CHF, CAD, and sleep apnea. Will admit to continue medical therapy and monitor. Hospital Course This is a general summary of the patient's hospital course. For more details refer to the complete medical record. Hospital course: Cardizem gtt overnight. Rate controlled although remains in Afib. Drip stopped and po started. Therapeutic lovenox stopped this morning and Xarelto started. Audio Video Repairer and sodium rising. Losartan/HCTZ stopped. Will monitor blood pressure over night. Continue diuresis. Required oxygen overnight to keep sats >90%. Overnight pulse ox to assess for sleep apnea. RCAT for COPD. Sating >90% on RA while awake. Echo pending. Possibly discharge in the morning. 02/25/17 Diastolic CHF:EF 53% on Echo. Continue with gentle diuresis with Lasix 80mg po BID. Patient has LVH and water balance will be difficult to maintain. AFib:Stop Amlodipine and increase Cardizem to 480mg daily 02/26/17 HANY/ DCCV: see report 02/27/17 11:02 AFIB: DCCV following HANY yesterday then given Flecainide 100mg, followed by 50mg BID. Cardizem continued at 240mg due to bradycardia during the night on 480mg dose. Continue Xarelto for stroke prevention, stop Aspirin. CHF: Lasix 80mg po daily. HTN: Suboptimal control, added Hydralazine 10mg TID yesterday. Today, change Cardizem to Nifedipine 60mg daily 02/28/17 14:24 Worsening dyspnea with hypoxia, Chest x-ray with pulmonary edema. Increase Lasix to 80mg BID and continue to monitor. Exercise oximetry to assess for home O2 needs. BP: better control on Nifedipine 03/01/17 Home with home O2. Time spent with patient: 25 - 35 minutes DVT Prophylaxis: Xarelto Exam Vital signs: Temperature 97.7 F 03/01/17 12:07 Pulse Rate 68 03/01/17 12:07 Respiratory Rate 20 03/01/17 12:07 Blood Pressure 104/71 03/01/17 12:07 Pulse Oximetry 92 03/01/17 12:07 - Constitutional no acute distress, morbidly obese, cooperative - Routine HEENT Exam Head: Present: normocephalic ENT: Present: mucous membranes moist - Routine Neck Exam Absent: JVD, carotid bruit - Routine Chest/Breast/Axilla Exam Chest wall: Absent: tenderness - Routine Respiratory Exam Present: CTA bilaterally. Absent: rales, wheezes, crackles - Routine Cardiovascular Exam Present: RRR, no murmur. Absent: JVD - Routine Abdominal Exam Present: soft, normoactive bowel sounds - Routine Extremities Exam Present: no edema - Routine Skin Exam Present: intact, dry, warm - Routine Neurological Exam Present: alert, oriented X3 - Routine Psychiatric Exam Present: normal affect, normal thought process - Additional findings Additional findings: Acetaminophen/Hydrocodone Bitart ([place] 10/325) 1 tab PO Q6H PRN PRN Reason: Pain Last Admin: 03/01/17 09:48 Dose: 1 tab Fenofibrate (Tricor) 145 mg PO WB [facility] Last Admin: 03/01/17 08:20 Dose: 145 mg Flecainide Acetate (Tambocor) 50 mg PO Q12HR [facility] Last Admin: 03/01/17 08:19 Dose: 50 mg Furosemide (Lasix) 80 mg PO [id number] [facility] Last Admin: 03/01/17 08:18 Dose: 80 mg Hydralazine HCl (Apresoline) 10 mg PO TIDWM [facility] Last Admin: 03/01/17 08:18 Dose: 10 mg Losartan Potassium (Cozaar) 100 mg PO DAILY [facility] Last Admin: 03/01/17 08:18 Dose: 100 mg Meloxicam (Mobic) 7.5 mg PO WB [facility] Last Admin: 03/01/17 08:19 Dose: 7.5 mg Metoprolol Tartrate (Lopressor) 100 mg PO BIDWM [facility] Last Admin: 03/01/17 08:19 Dose: 100 mg Nifedipine (Procardia Xl) 60 mg PO DAILY [facility] Last Admin: 03/01/17 08:18 Dose: 60 mg Pantoprazole Sodium (Protonix Tab) 40 mg PO ACB [facility] Last Admin: 03/01/17 06:00 Dose: 40 mg Polyethyl Glycol/Propylene Glycol (Systane Eye Drops) 1 drop EACH EYE PRN PRN Last Admin: 02/25/17 11:08 Dose: 1 drop Potassium Chloride (K-Dur) 40 meq PO TIDWM [facility] Last Admin: 03/01/17 08:18 Dose: 40 meq Rivaroxaban (Xarelto) 20 mg PO WS [facility] Last Admin: 02/28/17 17:53 Dose: 20 mg Sertraline HCl (Zoloft) 100 mg PO DAILY [facility] Last Admin: 03/01/17 08:20 Dose: 100 mg Sodium Chloride (Iv Flush) 10 - 80 ml IVF PRN PRN PRN Reason: Flushing Last Admin: 03/01/17 08:20 Dose: 10 ml Tramadol HCl (Ultram) 100 mg PO Q6H PRN Last Admin: 03/01/17 06:01 Dose: 100 mg Results 03/01/17 05:17 03/01/17 05:17 CBC 03/01/17 Range/Units 05:17 WBC 10.2 (4.5-11.0) T/MM3 RBC 5.26 (4.50-5.90) M/MM3 Hgb 14.3 (13.5-17.5) GM/DL Hct 44.3 (41-53) % Plt Count 257 (130-400) T/MM3 Comprehensive Metabolic Panel 03/01/17 Range/Units 05:17 Sodium 146 H (134-144) MEQ/L Potassium 3.9 (3.6-5) MEQ/L Chloride 102 (98-107) MEQ/L Carbon Dioxide 29 (22-30) MEQ/L BUN 40.0 H (9-20) MG/DL Creatinine 0.9 (0.8-1.5) MG/DL Glucose 96 (75-110) MG/DL Calcium 9.8 (8.4-10.2) MG/DL Intake and Output 02/28/17 03/01/17 03/01/17 22:59 06:59 14:59 Intake Total 360 / 360 240 / 240 Output Total 400 / 400 810 / 810 Balance -40 / -40 -810 / -810 240 / 240 Intake: Oral 360 / 360 240 / 240 Output: Urine 400 / 400 810 / 810 Other: Urine Appearance Clear Clear Urine Color Yellow Yellow Urine Odor Normal # Voids 1 3 Weight 268 lb 15.423 oz Patient Weight 03/02/17 06:59 Weight 268 lb 15.423 oz - Imaging and Cardiology Echo: report reviewed EKG results: image reviewed - EKG Interpretation EKG: sinus rhythm EKG shows: bradycardia Discharge Plan - Med Rec/Dispo Referrals/Follow Up: Thony Diaz MD [Physician] - 03/19/17 10:40 am Elian Instructions: [facility] [place] Congestive Heart Failure, A-fib (Atrial Fibrillation) (GEN), Living With Your Heart Failure Monitoring System (GEN) Prescriptions: New Flecainide [Tambocor] 50 mg PO Q12HR #60 tab Hydralazine [Apresoline] 10 mg PO TIDWM #90 tab Metoprolol Tartrate [Lopressor] 100 mg PO BIDWM #60 tab NIFEdipine XL [Procardia Xl] 60 mg PO DAILY #30 tab Potassium Chloride [K-Dur] 40 meq PO TIDWM #90 tab Furosemide [Lasix] 80 mg PO [id number] #60 tab Losartan [Cozaar] 100 mg PO DAILY #30 tab Rivaroxaban [Xarelto] 20 mg PO WS #30 tab Continue Fenofibrate [Tricor] 145 mg PO DAILY #0 Meloxicam 7.5 mg PO DAILY #0 Sertraline HCl 100 mg PO DAILY #0 tab Saw [place] Fruit [Saw [place]] 450 mg PO DAILY Systane Eye Drops 1 drop PRN PRN PRN Reason: Dry eyes [place] 10 mg-acetaminophen 325 mg tablet 1 tab PO Q8H PRN PRN Reason: Pain Discontinued Metoprolol Succinate 100 mg PO DAILY #0 Amlodipine Besylate 10 mg PO HS #0 Losartan/Hydrochlorothiazide [Losartan-Hctz 100-25 mg Tab] 1 each PO DAILY #0 - Disposition 01 Discharged Home, Self-Care <Thony Diaz - Last Filed: 03/08/17 14:01> Discharge Information Date of admission: 02/26/17 09:19 Attending Physician: Thony Diaz MD Primary care physician: Diego Miller MD - Discharge Diagnosis (1) CHF (congestive heart failure) Status: Acute (2) A-fib Status: Resolved (3) Morbid (severe) obesity due to excess calories Status: Acute (4) COPD (chronic obstructive pulmonary disease) Status: Acute (5) Hypertensive left ventricular hypertrophy with heart failure Status: Acute (6) Essential (primary) hypertension Status: Acute (7) Hypoxia Status: Acute - Laboratory Labs: 03/01/17 05:17 03/01/17 05:17 Hospital Course This is a general summary of the patient's hospital course. For more details refer to the complete medical record. Exam Vital signs: Temperature 97.7 F 03/01/17 12:07 Pulse Rate 68 03/01/17 12:07 Respiratory Rate 20 03/01/17 12:07 Blood Pressure 104/71 03/01/17 12:07 Pulse Oximetry 92 03/01/17 12:07 Results 03/01/17 05:17 03/01/17 05:17 Discharge Plan - Med Rec/Dispo - Attestation Attestation Narrative: 03/08/17 14:01 Recommendation After examining the patient I agree with the above assessment. I am involved in the formulation of the patient's plan of care.
== END 2017-03-01 14:10 | disposition home or self-care (01) | DRG 308 ==
LOC: ED 10:30 → SRG 13:14 → INTOOBSV 13:14 → SRG 13:45 → CCU 19:17 → MED 02-24 18:11
PROVIDERS: ADMIT Internal Medicine Cardiovascular Disease; ATTEND Internal Medicine Cardiovascular Disease